=== PATIENT | female | born 1980 | race Native Hawaiian/Other Pacific Islander ===

== ENCOUNTER 2017-01-09 12:34 | Emergency (ER) | payer OTHER ==
[~2017-01-09] VITALS: Ht 170.2 cm; Wt 158.8 kg
[2017-01-09 13:05] VITALS: BP 151/86; TEMP 98.1
[2017-01-09] MEDS ORDERED: LEVO0.0529 PO (13:07)
[2017-01-09] MEDS ORDERED: TOPAMAX50 MG OR (13:08)
[2017-01-09] MEDS ORDERED: METFTAB PO (13:08)
[2017-01-09] MEDS ORDERED: RANITIDINE 150150 MG PO (13:08)
[2017-01-09] MEDS ORDERED: CETIRIZINE10 MG PO (13:09)
[2017-01-09] MEDS ORDERED: ADDERALL15 MG PO (13:09)
[2017-01-09] MEDS ORDERED: VALTREX1 GM PO (13:10)
[2017-01-09] MEDS ORDERED: ASPIRIN CHLD81 MG OR (13:10)
[2017-01-26] MEDS ORDERED: TRAM50TA PO (23:02)
== END 2017-01-09 14:40 | disposition home or self-care (01) ==
LOC: ED 12:34
DX: M79.1 Myalgia (principal)
CPT/HCPCS: 99281

== ENCOUNTER 2019-06-30 08:06 | Outpatient (CLI) | payer OTHER ==
[~2019-06-30 08:06] MED LIST: ADDERALL15 MG PO; ASPIRIN CHLD81 MG OR; CETIRIZINE10 MG PO; LEVO0.0529 PO; METFTAB PO; RANITIDINE 150150 MG PO; TOPAMAX50 MG OR; TRAM50TA PO; VALTREX1 GM PO
[2019-06-30 08:29] LABS: PLATELET COUNT 340 K/uL (152-353)
[2019-06-30 08:34] LABS: POTASSIUM 3.9 mmol/L (3.6-5.2); SODIUM 139 mmol/L (136-145)
== END 2019-06-30 23:59 ==
LOC: LABW 08:06
PROVIDERS: Nurse Practitioner Family
DX: R53.83 Other fatigue (principal); R60.0 Localized edema; E55.9 Vitamin D deficiency, unspecified; E78.2 Mixed hyperlipidemia
CPT/HCPCS: 36415; 80053; 80061; 82306; 82550; 82607; 83880; 84484; 85027

== ENCOUNTER 2020-04-11 09:31 | Outpatient (CLI) | payer BC | END 2020-04-11 19:52 | disposition home or self-care (01) | LOC: RAD 09:31 | DX: R05 Cough (principal) ==

== ENCOUNTER 2020-11-30 15:44 | Outpatient (CLI) | payer BC | END 2020-11-30 23:58 | disposition home or self-care (01) | LOC: RAD 15:44 | PROVIDERS: ATTEND Nurse Practitioner Family | DX: R05 Cough (principal) ==

== ENCOUNTER 2021-03-23 15:23 | Observation (INO) | payer BC ==
[~2021-03-23] VITALS: Ht 170.2 cm; Wt 199.7 kg
--- NOTE | 2021-03-23 15:38 | NUR ---
PATIENT ARRIVED TO THE FLOOR VIA WHEELCHAIR FROM ER.
[2021-03-23 16:12] LABS: PLATELET COUNT 333 K/uL (152-353)
[2021-03-23 16:26] VITALS: BP 118/74; TEMP 97.9; Ht 170.2 cm; Wt 199.7 kg
--- NOTE | 2021-03-23 16:30 | NUR ---
22G PERIPHERAL IV INITIATED TO LEFT AC. PATIENT TOLERATED WELL.
[2021-03-23 16:31] LABS: PARTIAL THROMBOPLASTIN TIME 25.7 SECONDS (24.5-33.6)
[2021-03-23 16:41] LABS: POTASSIUM 3.6 mmol/L (3.6-5.2); SODIUM 140 mmol/L (136-145)
[2021-03-23] MEDS ORDERED: FURO20TA67 PO (17:19)
[2021-03-23] MEDS ORDERED: PEPCID40 MG PO (17:19)
[2021-03-23] MEDS ORDERED: KRILL OIL1000 MG PO (17:20)
[2021-03-23] MEDS ORDERED: MULTIVITAMI1 PO (17:21)
[2021-03-23 19:50] VITALS: BP 111/59; TEMP 97.9
--- NOTE | 2021-03-23 20:09 | NUR ---
AT PT'S BEDSIDE AT THIS TIME. PT WAS RESTING WITH SIDE RAILS UP TIMES TWO WITH BED IN LOWEST POSITION. NAD NOTED. PT STATES "I FEEL MUCH BETTER".
[2021-03-23 23:55] VITALS: BP 108/54; TEMP 97.4
[2021-03-24 04:00] VITALS: BP 133/69; TEMP 98.3
[2021-03-24 08:00] VITALS: BP 124/60; TEMP 97.8
[2021-03-24 12:00] VITALS: BP 118/68; TEMP 98.3
--- NOTE | 2021-03-24 14:10 | NUR ---
DR. WALLACE HERE TO SEE PATIENT. NEW ORDERS RECEIVED TO REMOVE NITROPASTE, ADMINISTER TYLENOL 650MG PO FOR HEADACHE IF NEEDED, STOP ESTRACE, D/C HOME AND FOLLOW UP WITH PHYSICIAN ON SUNDAY, MARCH 28, 2021, NOTED AND CARRIED OUT.
--- NOTE | 2021-03-24 16:00 | NUR ---
REVIEWED DISCHARGE INSTRUCTIONS WITH PATIENT, PT V/O UNDERSTANDING. IV D/C'D WITH TIP IN TACT. PATIENT DENIES ANY PAIN, NEEDS OR C/O AT THIS TIME. PATIENT D/C'D AND TAKEN TO POV VIA WHEELCHAIR WITH SONS AT SIDE. NAD NOTED WITH PATIENT AT THIS TIME. REMINDED PATIENT OF FOLLOW UP APPT WITH DR. WALLACE ON MARCH 28 @ 11:30 AND ENSURED PATIENT HAD PRESCRIPTION FOR FIORECET. PATIENT TRANSFERRED TO POV WITHOUT DIFFICULTY.
== END 2021-03-24 16:00 | disposition home or self-care (01) ==
LOC: MED/SURG 15:23
PROVIDERS: ADMIT Family Medicine; ATTEND Family Medicine
DX: R07.89 Other chest pain (principal); J30.9 Allergic rhinitis, unspecified; E66.01 Morbid (severe) obesity due to excess calories
CPT/HCPCS: 36415; 80053; 82550; 84443; 84484; 85027; 85610; 85730; 87635; 93005; 96365; 96367; 96372; 99220; G0378; G0379; J1650; J2550; U0003

== ENCOUNTER 2021-03-28 15:17 | Outpatient (CLI) | payer BC ==
[~2021-03-28 15:17] MED LIST changes: +FURO20TA67 PO; +KRILL OIL1000 MG PO; +MULTIVITAMI1 PO; +PEPCID40 MG PO
== END 2021-03-28 19:29 | disposition home or self-care (01) ==
LOC: RAD 15:17
PROVIDERS: ATTEND Nurse Practitioner Family
DX: M54.5 Low back pain (principal); M79.602 Pain in left arm; M54.6 Pain in thoracic spine

== ENCOUNTER 2021-05-08 14:00 | Outpatient (CLI) | payer BC | END 2021-05-08 23:59 | disposition home or self-care (01) | LOC: RESP 14:00 | PROVIDERS: ATTEND Nurse Practitioner Family | DX: Z87.898 Personal history of other specified conditions (principal) ==

== ENCOUNTER 2021-06-12 11:14 | Outpatient (CLI) | payer BC, OTHER | END 2021-06-12 22:41 | disposition home or self-care (01) | LOC: RAD 11:14 | PROVIDERS: ATTEND Family Medicine | DX: U07.1 COVID-19 (principal) ==

== ENCOUNTER 2021-06-13 10:21 | Inpatient (IN) | payer OTHER, BC ==
[~2021-06-13] VITALS: Ht 167.6 cm; Wt 191.6 kg
[2021-06-13 17:33] LABS: PLATELET COUNT 266 K/uL (152-353)
[2021-06-13 17:55] LABS: POTASSIUM 2.9 mmol/L (3.6-5.2)
[2021-06-13 19:55] VITALS: BP 129/67; TEMP 100.4; Ht 167.6 cm; Wt 191.6 kg
[2021-06-13 20:00] VITALS: TEMP 101.5
--- NOTE | 2021-06-13 20:17 | NUR ---
PT HAS 22 GA LAC X2 ATTEMPTS. PT ALERT AND AWAKE. PT HAVING DIFFICULTY BREATHING WHEN WALKING AND PLACED ON O2 HIGH FLOW PER RESPIRATORY. NS IVF INFUSING AT 125ML/HR. IV ANTIBIOTICS ADMINISTERED ORDERED. ALL ADMISSION ORDERS COMPLETED. CRITICAL ON WBC=29.3,NOTIFIED AT 1735, DR WALLACE NOTIFIED AT 1750.
--- NOTE | 2021-06-13 21:45 | NUR ---
PT. HAD A TEMP OF 101.5. GAVE TYLENOL 500 MG. DECREASED TEMP TO 98.9
--- NOTE | 2021-06-13 23:00 | NUR ---
CALLED DR. WALLACE- FOR ANXIOUS BEHAVIOR EXHIBITED BY PT. PT STATES "DO NOT LET ME ". RECIEVED ORDERS FOR ATIVAN 1 MG ONE TIME DOSE AND PT. ALSO EXPERIENCING A NON-PRODUCTIVE COUGH. RECEIVED ORDERS FOR TUSSIONEX 5 ML PRN Q12H AND TESSALON PERLES 200MG TID PRN. NOTED AND CARRIED OUT.
[2021-06-14] VITALS (14 sets, daily range): BP systolic 105–152; BP diastolic 57–89; TEMP 98.1–99.4
--- NOTE | 2021-06-14 05:57 | NUR ---
PT. CURRENTLY SATTING 91% ON HIGH FLOW OXYGEN DEVICE AT 50L @ 45%. PT. RESTING WELL WITH SIDE RAILS UP TIMES TWO WITH BED IN LOWEST POSITION WITH CALL LIGHT WITHIN REACH. NO S/S OF ACUTE DISTRESS NOTED AT THIS TIME.
[2021-06-14 07:51] LABS: PLATELET COUNT 247 K/uL (152-353)
[2021-06-14 08:00] LABS: POTASSIUM 3.1 mmol/L (3.6-5.2)
--- NOTE | 2021-06-14 10:10 | NUR ---
PT TRANSFERRED DINTO ICU VIA BED WITH HIGHFLOW, PT LABORED, ALERT AND ORIENTED AT THIS TIME, ABLE TO MOVE W/O ASSIST TO ICU BED.
--- NOTE | 2021-06-14 10:15 | NUR ---
DR WALLACE AT BS.
--- NOTE | 2021-06-14 10:30 | NUR ---
NON-REBREATHER APPLIED OVER HIGHFLOW
--- NOTE | 2021-06-14 10:39 | NUR ---
PT MOVED TO ICU TO BE BETTER MONITORED, SHE IS ON HFNC AT 100% AT 50 LITERS. WITH A NRB OVER THAT. HEARTRATE 86, SPO2 IS 99%. PT IS STILL LABORED BREATHING.
--- NOTE | 2021-06-14 11:52 | NUR ---
ASSITED PT UP TO BSC TO VOID, URINE SATURATED CLOTHES REMOVED, PT CLEANED. AND ASSISTED BACK TO BED. RESP INCREASED WHILE OOB, SATS 83%.
--- NOTE | 2021-06-14 11:54 | NUR ---
SATS 93%
--- NOTE | 2021-06-14 12:30 | NUR ---
ATTEMPTED TO FIND SECND IV SITE W/O SUCCESS.
--- NOTE | 2021-06-14 13:15 | NUR ---
KEITH STONE RN ATTEMPTING IV
--- NOTE | 2021-06-14 13:28 | NUR ---
DR WALLACE GIVEN UPDATE, [facility] RECIEVED.
--- NOTE | 2021-06-14 14:47 | NUR ---
pt sitting up in bed, instructing pt to take deep brreaths andd cough.
--- NOTE | 2021-06-14 14:57 | NUR ---
500mm IS, LOOSE COUGH AAT TIMES
--- NOTE | 2021-06-14 15:08 | NUR ---
PT TEXTING AT THIS TIME. PT HAS BEEN INSTRRUCCTED SEVEAL TO TAKE DEEP BREATHS AND COUGH.
--- NOTE | 2021-06-14 15:10 | NUR ---
DR WALLACE AT BS
--- NOTE | 2021-06-14 16:32 | NUR ---
TRANSFERRED TO [facility] FOR XRAY
--- NOTE | 2021-06-14 16:38 | NUR ---
RETURN FROM RAD
--- NOTE | 2021-06-14 17:05 | NUR ---
PT INTUBATED PER NANCY CARL CRNA, DR WALLACE, RESP, OR STAFF AT BEDSIDE. INTUBATED WITH BROCHOSCOPE.
--- NOTE | 2021-06-14 17:16 | NUR ---
1 AMP ATROPINE GIVEN FOR DECREASED HEARTRATE OF 58.
--- NOTE | 2021-06-14 17:50 | NUR ---
PT INCONT OF STOOL AND URINE
--- NOTE | 2021-06-14 18:00 | NUR ---
TOF 4/, 20MM. APPLIED AT TEMPORAL
--- NOTE | 2021-06-14 18:00 | NUR ---
ART LINE PLACED PER R.T.
--- NOTE | 2021-06-14 18:05 | NUR ---
CHEST XRAY DONE CHECKING FOR PLACEMNET FOR TUBE PLACEMENT.
--- NOTE | 2021-06-14 18:30 | NUR ---
16 FR KIRKPATRICK INSERTED RNARE PER ELIZABETH ROBERSON RN
--- NOTE | 2021-06-14 18:57 | NUR ---
PT INTUBATED BY NANCY CARL CRNA AT 1705. PT PLACED ON VENTILATOR AT 1730. SETTINGS 500VT, 100% FIO2, RR30 ,PEEP 15, PS 10.. SETTINGS DR. WALLACE. PT ALSO SIMV. ARTLINE PLACED AND ABG DRAWN. RESULTS GIVEN TO DR. WALLACE. WANTS TO DECREASE RATE TO 27. WILL CONTINUE TO MONITOR ,PT SEEMS TO BE RESTING AT THIS TIME.
--- NOTE | 2021-06-14 20:00 | NUR ---
16FR HOLGUIN CATH INSERTED, RETURN OF RAHUL COLORED URINE.
--- NOTE | 2021-06-14 22:11 | NUR ---
X RAY RO DO CHEST X RAY TO VERIFY NG TUBE PLACEMENT
--- NOTE | 2021-06-14 23:45 | NUR ---
LATE ENTRY. 1900: ART LINE ZEROED, ASSESMENT COMPLETE, ALL IV SITES ARE CLEAN DRY AND INTACT 1999: PATIENT VITALS ARE STABLE, PATIENT HAS BEEN TURNED AND REPOSITIONED. 2100: RESPIRTORY AT BEDSIDE GIVING A BREATHING TREATMENT. IV ANTIBIOTIC STARTED. 0: RULE OF 4 PROTOCOL INITIATED. PATIENT HAS 4/4 POSITIVE TWITCHES. PATIENT IS IN NO APPARENT DISTRESS. 2300: MD INFORMED OF ET TUBE PLACEMENT. NO ORDERES GIVEN ON THE PLACEMENT. MD ALSO INFORMED ON PATIENTS BP TRENDS AND THAT THE VERSAD WAS TITRATED TO 7.5. MD ORDERED PROCAL TO BE STARTED. NO OTHER ORDERS GIVEN AT THIS TIME. 0000: PATIENTS VITALS ARE STABLE, PATIENT IN NO APPARENT DISTRESS
[2021-06-15] VITALS (49 sets, daily range): BP systolic 116–153; BP diastolic 50–97; TEMP 60–99.3
--- NOTE | 2021-06-15 00:18 | NUR ---
PATIENT NOTED WITH CLEAR SECRETIONS AROUND ET TUBE. MOUTH SUCTIONED AT THIS TIME. ORAL CARE PROVIDED.
--- NOTE | 2021-06-15 02:19 | NUR ---
0100: PATIENT REPOSITIONED AND LIMBS ELAVATED. PATIENT BEGAN SWEATING AND HER BLOOD PRESSURE WAS INCREESING. WE TITRATED THE VERSAD BACK UP TO 10
[2021-06-15 03:44] LABS: PLATELET COUNT 238 K/uL (152-353)
--- NOTE | 2021-06-15 03:46 | NUR ---
0230: TRAIN OF FOUR CHECKS WERE PREFORMED. NO TWICH CONFIRMED BY TWO NURSES IN TWO DIFFERENT SITES. 0250: VITALS ARE STABLE. NOTIFIED. ORDERED LABS TO BE DRAWN NOW, EKG, AND CARDICS. TWITCH TESTS PREFORMED EVERY 15 MINUTES. AT 0315 NO TWITCH NOTED, AT 0330 NO TWITCH NOTED. VITALS ARE STABLE AND PATIENT IN NO APPARENT DISTRESS. 0345: ONE TWITCH NOTED AND CONFIRMED BY OTHER NURSE
[2021-06-15 04:16] LABS: POTASSIUM 3.4 mmol/L (3.6-5.2)
--- NOTE | 2021-06-15 05:41 | NUR ---
RT AT BEDSIDE, CPLLECTING BLOOD GAS FROM PATIENTS ARTERIAL LINE
--- NOTE | 2021-06-15 06:42 | NUR ---
PATIENTS RULE OF 4 PROTOCOL. PATIENT HAS 2/4 TWITCHES =. PATIENT VITALS ARE WNL AND PATIENT IN NO APPARENT DISTRESS
--- NOTE | 2021-06-15 07:28 | NUR ---
CALLED AND IT WAS REPORTED THAT THE PATIENT HAD NO MORE TWITCHES AT 0630. DR SAID TO "TITRATE AND RECALCULATE TO HER 'IDEAL BODY WEIGHT' OF 160 LBS . PUMP IS NOW GOING AT 34.6ML/HR. ORDERED RESPIRTORY TO BEGIN "WEANING" OFF SOME OF THE O2. SHE ALSO ASKED PHARMACY TO RECALCULATE HER LOVENOX.
--- NOTE | 2021-06-15 07:50 | NUR ---
PT POSITIONED TO R SIDE
--- NOTE | 2021-06-15 08:10 | NUR ---
ART LINE LEVELED AND ZEROED.
--- NOTE | 2021-06-15 08:38 | NUR ---
UPDATE GIVEN TO DR WALLACE, ORDERS REVIEVED.
--- NOTE | 2021-06-15 08:38 | NUR ---
CHEST XRAY DONE
--- NOTE | 2021-06-15 09:15 | NUR ---
SATS 91%-92%. ORAL CAVITIY SUCTIONED, PT SUCTIONED WITH INLINE SUCTION.
--- NOTE | 2021-06-15 10:20 | NUR ---
PT SUCTIONED, BAGGED DUE TO DECREASED SATS. RESP TH AT BS. WORKING WITH PT TO INCREASE SATS FOR AN HOUR. PHONED DR WALLACE TO UPDATE ON PTS STATUS. DR WALLACE STATES SHE IS ONSITE.
--- NOTE | 2021-06-15 10:30 | NUR ---
PT POSITIONED TO LEFT WITH THE HELP OF SEVERAL STAFF MEMBERS.
--- NOTE | 2021-06-15 10:30 | NUR ---
DR WALLACE AT BS.
--- NOTE | 2021-06-15 11:05 | NUR ---
DECREASED VEC GTT 0.6MCG/KG/MIN.
--- NOTE | 2021-06-15 11:30 | NUR ---
ATTEMPTED TO CALL PTS , MAILBOX IS FULL, UNABLE TO LEAVE MESSAGE. CALLED TO ORDER TO GAIN CONSENT FOR PICC LINE PLACEMENT. DR WALLACE AND DR EILZABETH AT BS, AGREE PICC LINE NEEDS TO BE PLACED.
--- NOTE | 2021-06-15 11:36 | NUR ---
DR WALLACE PRESENT
--- NOTE | 2021-06-15 12:00 | NUR ---
PICC LINE PLACEMENT.
--- NOTE | 2021-06-15 13:00 | NUR ---
TOF 2/4 AT 25MM, PT RESTING COMFORTABLY.
--- NOTE | 2021-06-15 13:00 | NUR ---
PT POSITIONED ONTO LEFT SIDE, PT IS CLEAN AND DRY AT THIS TIME. SATS 95%
--- NOTE | 2021-06-15 14:00 | NUR ---
RESTING ON BACK
--- NOTE | 2021-06-15 15:45 | NUR ---
EKG DONE PER RT.
--- NOTE | 2021-06-15 17:36 | NUR ---
ORAL SECRETIONS SUCTIONED, MOUTH CARE DONE.
--- NOTE | 2021-06-15 18:43 | NUR ---
ADJUSTMENTS MADE TO VENT, 02 DECREASED 95%. ATTEMPTS MADE TO DECREASE PEEP 10 AND RATE 23, PTS 02 SATS DECREASED 88%, ABDOMINAL BREATHING NOTED. PEEP INCREASED TO 15 AND RATE INCREASED TO 27, PTS SATS INCREASED TO 94-95%. RAMÍREZ FROM RT INFORMED DR WALLACE CHANGE MADE AND ATTEMPTED CHANGES. CPK 319 REPORTED.
--- NOTE | 2021-06-15 20:00 | NUR ---
VECURONIUM 0.6 MCG/KG/MIN. TRAIN OF FOUR; 4/4 TWICHES. VEC TITRATED TO 0.8 MCG/KG/MIN.
--- NOTE | 2021-06-15 20:28 | NUR ---
PT GAVE LILIBETH PASSWORD ON 06-14-21 STATED THAT SHE WANTED HER TO BE POINT OF CONTACT. LILIBETH ARRIVED TODAY TO [employer] PT BELONGINGS. 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 LILIBETH ACKNOWLEDGED RECIEPT OF THESE ITEMS BY SIGNATURE. SHE ALSO COUNTED THE MONEY, THE RINGS AND CELL PHONE WAS SHOWN TO HER PRIOR TO HER LEAVING.
--- NOTE | 2021-06-15 20:35 | NUR ---
HERE AT THE BEDSIDE. UPDATED ON RECENT ABG. NO NEW ORDERS GIVEN AT THIS TIME. PATIENT WAS REPOSITIONED ON TO HER LEFT SIDE X 5 PERSON MAX ASSIST. PATIENT TOLERATED POSITIONING WELL.
--- NOTE | 2021-06-15 22:04 | NUR ---
TRAIN OF FOUR: 4/4 TWITCHES. VECURONIUM INCREASED TO 0.9 MCG/KG/MIN. WILL CONTINUE TO MONITOR.
--- NOTE | 2021-06-15 23:06 | NUR ---
LATE ENTRY 06/15/21 1900: RECEIVED REPORT FROM LIBERTAD MANRIQUE RN. SHIFT ASSESSMENT COMPLETED. PATIENT IS SEDATED AND ON A MECHANICAL VENT. VENT SETTINGS ARE FOLLOWS: SIMV MODE, TV 500 ML, RATE 27, PEEP 15, FIO2 95%. ET TUBE 7; 22 AT THE LIP. NG TUBE TO THE RIGHT NARE CONNECTED TO LIWS WITH DARK GREEN DRAINAGE NOTED IN TUBING. ART LINE ZEROED AND IT IS PATENT AND INTACT TO THE RIGHT WRIST. VERSED DRIP 10 MG/HR, VECURONIUM 0.6 MCG/KG/MIN, NS AT 30 ML/HR, PROCALAMINE 70 ML/HR INFUSING TO A PICC IN THE LEFT UPPER ARM AND 20G TO THE LEFT ARM, BOTH LINE ARE PATENT AND INTACT. 20G TO THE LEFT HAND IS SALINE LOCKED. PATIENT NOTED WITH 16F.HOLGUIN CATHETER TO THE BEDSIDE DRAINING PEACH COLORED URINE WITH PINK SEDIMENT NOTED IN TUBING. BED IS LOCKED IN LOW POSITION, SIDE RAILS UP X2.
--- NOTE | 2021-06-15 23:56 | NUR ---
VECURONIUM AT 0.9 MCG/KG/MIN. TRAIN OF FOUR: 2/4 TWITCHES. NO ACUTE DISTRESS NOTED.
[2021-06-16] VITALS: TEMP 98.2
--- NOTE | 2021-06-16 00:02 | NUR ---
VECURONIUM 0.9 MCG/KG/MIN. TRAIN OF FOUR; 1/4 TWITCHES. VEC DECREASED TO 0.8 MCG/KG/MIN.
--- NOTE | 2021-06-16 00:37 | NUR ---
PATIENT NOTED WITH SECRETIONS COMING FROM THE MOUTH. MOUTH SUCTIONED AT THIS TIME. ORAL CARE PROVIDED.
--- NOTE | 2021-06-16 01:38 | NUR ---
PATIENT REPOSITIONED ON HER BACK AT THIS TIME.
--- NOTE | 2021-06-16 02:55 | NUR ---
PT RESTING WITH EYES CLOSED. TEMP RECHECKED 102.5.
--- NOTE | 2021-06-16 03:21 | NUR ---
TRAIN OF FOUR; 2/4 TWITCHES VECURONIEUM 0.8 MCG/KG/MIN.
--- NOTE | 2021-06-16 04:26 | NUR ---
PATIENTS MOUTH SUCTION WITH SMALL AMOUNT OF CLEAR SECRETIONS NOTED. ORAL CARE PROVIDED TO MOUTH AND MOISTURIZER APPLIED TO LIPS AT THIS TIME.
--- NOTE | 2021-06-16 05:09 | NUR ---
SPO2 94% FIO2 WAS INCREASED FROM 95% TO 100% PER ABG READINGS.
[2021-06-16 05:30] VITALS: TEMP 97.9
--- NOTE | 2021-06-16 06:21 | NUR ---
TRAIN OF FOUR: 4/4 TWITCHES. VECURONIUM 0.9 MCG/KG/MIN.
[2021-06-16 08:19] LABS: PLATELET COUNT 282 K/uL (152-353)
[2021-06-16 08:33] LABS: POTASSIUM 3.6 mmol/L (3.6-5.2)
--- NOTE | 2021-06-16 19:25 | NUR ---
SHIFT ASSESSMENT COMPLETED. PATIENT IS SEDATED ON THE VENT WITH THE FOLLOWING DRIPS VERSED 0.15 MG/KG AND PROPOFOL 10 MCH/KG/MIN, PROCAL 70 ML/HR AND 1/2 NS AT 30 ML/HR. VENT SETTINGS SIMV MODE 95%, TV 500 ML, RATE 27, PEEP 15 ,PRESSURE SUPPORT 10, FIO2 80%. PATIENT HAS PICC LINE PRESENT TO THE LEFT UPPER ARM THAT IS PATENT AND INTACT AND 2 PERIPHERAL 20G TO THE LEFT ARM THAT ARE SALIEN LOCKED. 16 F. HOLGUIN CATHETER IS PRESENT TO BEDSIDE DRAINAGE AND IS DRAINING APPROX. 300 ML OF PEACH URINE NOTED WITH SEDIMENT. ART LINE ZEROED AND IS INTACT AND PATENT WITH NO SIGNS OF INFILTRATION NOTED.
[2021-06-16 19:30] VITALS: TEMP 97.6
[2021-06-16 23:00] VITALS: TEMP 98.1
--- NOTE | 2021-06-16 23:06 | NUR ---
2215 Decreased FIO2 to 95% PT maintaining SATs and appears to be resting with no distress noted.
[2021-06-17 04:00] VITALS: TEMP 98.8
[2021-06-17 06:27] LABS: PLATELET COUNT 326 K/uL (152-353)
[2021-06-17 06:43] LABS: POTASSIUM 3.2 mmol/L (3.6-5.2)
--- NOTE | 2021-06-17 08:09 | NUR ---
RESP AT BS OBTAINING ABG AT THIS TIME.
--- NOTE | 2021-06-17 08:30 | NUR ---
XRAY AT BS FOR CHEST XRAY AT THIS TIME.
--- NOTE | 2021-06-17 08:30 | NUR ---
DR WALLACE CALLED AND LABS REPORTED. NEW ORDERS REC'D TO GIVE KDUR 40MEQ VIA NGT. ORDERS REC'D TO GIVE 1/2 CAN ENSURE PLUS AND 30 MINS PAST FEEDING IF TOLERATED TO GIVE KDUR AT THAT TIME. ALSO REC'D ORDERS TO DECREASE PEEP IF PT TOELATES. LEÓN IN RESP NOTIFIED.
--- NOTE | 2021-06-17 09:17 | NUR ---
0800 DECREASED FIO2 TO 70%. PT MARC WELL. SPO2 AT 94-95% 0921 DECREASED PEEP TO 12. PT MARC WELL. SPO2 AT 92-93%
--- NOTE | 2021-06-17 13:37 | NUR ---
0933-ATTEMPTED TO WEAN PEEP. PT WOULD NOT TOLERATE AT THIS TIME. WILL TRY AGAIN LATER. 1222- DECREASED PEEP TO 13. PT TOLERATING AT THIS TIME. SPO2 AT 94%
--- NOTE | 2021-06-17 15:49 | NUR ---
INCREASE PEEP TO 14 POST ABG.
--- NOTE | 2021-06-17 17:00 | NUR ---
DR WALLACE HERE AT BS AT THIS TIME TO MAKE ROUNDS.
--- NOTE | 2021-06-17 17:18 | NUR ---
1650-DECREASED PEEP TO [address] WALLACE AT BEDSIDE. PT SPO2 AT 94%
--- NOTE | 2021-06-17 19:40 | NUR ---
ORDERS GIVEN PER MD TO MONITOR TEMP AND KEEP PT COOL AND OBSERVE FOR SEIZURES AND TO KEEP VERSED AT HIGHER RATE UNTIL SATURDAY NIT. TEMP TO REMAIN 96-97 AX. NEW ORDERS REPORTED TO MORALES BETHEA RN
--- NOTE | 2021-06-17 20:16 | NUR ---
SHIFT ASSESSMENT COMPLETED. PATIENT IS ON THE VENT WITH THE FOLLOWING SETTINGS SIMV, RATE 27, PEEP 13, PRESSURE SUPPORT 10, FIO2 70%, TV 500 ML. IV'S 20G X2 VERSED 0.09 MG/KG/HR, 1/2 NS @30ML/HR, PROCAL @70 ML/HR, PROPOFOL 30 MCG/KG/HR INFUSING TO THE A LEFT UPPER ARM PICC LINE W/O DIFFICULTY. NG TUBE TO THE RIGHT NARE IS INTACT AND DRAINAGE DARK GREEN GASTRIC CONTENTS TO LIWS. ET TUBE SIZE 7 AND 23 AT THE LIP. ART LINE ZEROED AND IS PATENT AND INTACT TO THE RIGHT WRIST. 16 F.HOLGUIN BAG IS INTACT WELL. BED IS LOCKED IN LOW POSITION.
--- NOTE | 2021-06-17 21:38 | NUR ---
PATIENT NOTED WITH ORAL SECRETIONS BUBBLING OUT OF THE MOUTH AND RIGHT NARE. MOUTH SUCTIONED AND ORAL CARE PROVIDED. RIGHT NARE CLEANED WELL. MOSITURIZER APPLIED AT THIS TIME.
--- NOTE | 2021-06-17 23:24 | NUR ---
RESIDUAL CHECKED AND IT WAS GREATHER THEN 60 ML LIGHT BROWN GASTRIC CONTENTS. PATIENT WAS FED EARLIER TODAY ENSURE PLUS WHICH EXPLAINS COLOR.
[2021-06-18] VITALS (8 sets, daily range): TEMP 97.8–98.8
--- NOTE | 2021-06-18 01:25 | NUR ---
ORAL CARE DONE. LIPS LUBRICATED. PATIENT REPOSITIONED ON TO HER BACK.
--- NOTE | 2021-06-18 04:27 | NUR ---
RT AT THE BEDSIDE GIVING IN LINE BREATHING TREATMENT. PATIENT TOLERATING WELL WITH SPO2 95%.
[2021-06-18 06:33] LABS: PLATELET COUNT 341 K/uL (152-353)
[2021-06-18 06:51] LABS: POTASSIUM 4.9 mmol/L (3.6-5.2)
--- NOTE | 2021-06-18 08:44 | NUR ---
ALYSA MCDONOUGH RN AND MYSELF AT PT'S BEDSIDE. PT NOTED TO BE WAKING UP AND ATTEMPTING TO OPEN HER EYES. REASSURED PT SHE WAS OK AND THAT SHE IS STILL IN ICU AT THIS TIME. PT NOTED TO BE BREATHING OVER THE VENT SO ALYSA MCDONOUGH RN INCREASED PT'S DIPRIVAN TO 35 MCG/KG/MIN AT THIS TIME AT A RATE OF 39.9 ML/HR. WILL CON'T TO MONITOR PT. DR. WALLACE NOTIFIED.
--- NOTE | 2021-06-18 08:53 | NUR ---
0739- DECREASED PEEP TO 12. SPO2 AT 95%.
--- NOTE | 2021-06-18 11:08 | NUR ---
1000- DECREASAED PEEP TO 10. DECREASED RR TO 25. PT MARC WELL. SPO2 95%
--- NOTE | 2021-06-18 11:37 | NUR ---
DECREASED FIO2 TO 60%. WILL GET ABG IN 30MINS.
--- NOTE | 2021-06-18 12:17 | NUR ---
ABG RESULTS CALLED DTO [facility] NO NEW ORDERS AT THIS TIME
--- NOTE | 2021-06-18 12:25 | NUR ---
PT NG TUBE DISCONNECTED FROM SUCTION. PLACEMENT VERIFIED. FLUSHED NG TUBE WITH 30CC OF WATER, MEDS GIVEN WITH 30CC OF WATER, NG THEN FLUSHED AGAIN WITH ANOTHER 30 CC OF WATER. PT TOLERATED MEDS WELL AT THIS TIME.
--- NOTE | 2021-06-18 13:58 | NUR ---
DECREASED PEEP TO [address] WALLACE AT BEDSIDE.
--- NOTE | 2021-06-18 15:30 | NUR ---
PT'S RR NOTED TO BE INCREASED AT 42. RESPIRATORY CALLED TO BEDSIDE. PT NOTED TO BE NASAL FLARING, PIEDAD HAND BENDER DEEP SUCTIONED AT THIS TIME. SMALL AMOUNT OF THICK BLOOD TINGED MUCOUS NOTED WHEN SUCTIONED. HME CHANGED BY DARWIN HERBERT AT THIS TIME. PT'S DIPRIVAN INCREASED TO 40 MCG/KG/MIN.
--- NOTE | 2021-06-18 16:20 | NUR ---
INCREASED INCREASED 50MCG/KG/MIN
--- NOTE | 2021-06-18 17:00 | NUR ---
1 AMP BICARB GIVEN IVP PER MD ORDERS RATE ON VENT INCREASED TO [address] WALLACE. WILL REPEAT ABG IN 30
--- NOTE | 2021-06-18 17:35 | NUR ---
VERSED 0.1MG/KG/HR. DIPPRIVAN INCREAED TO 55MCKG/MIN
--- NOTE | 2021-06-18 17:50 | NUR ---
RESP AT BS TO OBTAIN ABG
--- NOTE | 2021-06-18 18:19 | NUR ---
DECREASED RR TO [address] WALLACE.
--- NOTE | 2021-06-18 18:20 | NUR ---
RR REAMINS LABORED AND INCRASED AT 30. SMALL AMT OF NASAL FLARING NOTED. DIPRIVAN INCARASED TO 70MCG.
--- NOTE | 2021-06-18 19:00 | NUR ---
ABG RESULTS CALLED TO DR WALLACE. PT RESTING WITH EEYS CLSOED. RR NOTED TO BE LESS LABERED AND NO NASAL FLARING NOTED AT THIS TIME DIPIRVAN RUNNING AT 70MCG VERSED INFUSING AT 0.1MG/KG/HR VIA PUMP. PROCAL AT 70ML/HR WITH NS AT 30ML/HR VIA PUMP. SATS 96% HR 74 129/84. REPORT GIVNE TO MORALES SUÁREZ RN
[2021-06-19] VITALS: TEMP 98.4
[2021-06-19 04:00] VITALS: TEMP 99.8
[2021-06-19 05:43] LABS: PLATELET COUNT 327 K/uL (152-353)
--- NOTE | 2021-06-19 08:25 | NUR ---
PATIENT ABDOMINAL BREATHING. DR. WALLACE AT BEDSIDE. VERSED BEGAN INFUSING AT 7ML/HR.
[2021-06-19 20:00] VITALS: TEMP 99.1
[2021-06-20] VITALS (21 sets, daily range): BP systolic 129–151; BP diastolic 42–74; TEMP 98.6–100.6
--- NOTE | 2021-06-20 | NUR ---
LATE ENTRY 06/19/21 AT 1900 PATIENT WAS ASSESED AND all THE LINES WERE CHECKED AND IN NORMAL LIMMITS. IV ANTIBIOTS GIVEN AT 1999. 2100 PATIENT WAS REPOSITIONED AND LIMBS ELIVATED. 2340 LOPS WERE LUBRACATED AND MOUTHCARE PREFORMED
--- NOTE | 2021-06-20 06:07 | NUR ---
UPDATED MD ON STAUS OF PATIENT
[2021-06-20 06:14] LABS: PLATELET COUNT 264 K/uL (152-353)
[2021-06-20 06:53] LABS: POTASSIUM 4.2 mmol/L (3.6-5.2)
--- NOTE | 2021-06-20 08:00 | NUR ---
ARTLINE TO R RADIAL, ARTLINE ZEROED.
--- NOTE | 2021-06-20 11:01 | NUR ---
SPOKE WITH DR WALLACE TO FARIBA STOKES
--- NOTE | 2021-06-20 11:04 | NUR ---
RT DECREASED PEEP 10
--- NOTE | 2021-06-20 20:11 | NUR ---
PATIENT MID[place]AM WAS TITRATED UP TO 15 DUE TO AGGITATION
[2021-06-21 00:01] VITALS: TEMP 99.9
[2021-06-21 01:24] LABS: POTASSIUM 4.3 mmol/L (3.6-5.2)
[2021-06-21 01:35] LABS: PLATELET COUNT 256 K/uL (152-353)
[2021-06-21 04:00] VITALS: TEMP 98.9
--- NOTE | 2021-06-21 06:19 | NUR ---
SUCTION AND LAVAGED PT WITH NO SECRECTIONS NOTED. SPO2 95%
--- NOTE | 2021-06-21 07:38 | NUR ---
ER CAME IN AND REASSES THE PATIENT AFTER THE EVENT. HE STATED HE IS, "UNDER SEDATED" AND WROTE A NOTE. THE PATIENT IS MAXED OUT ON FENTNYL AND VERSED. I ASKED THE MD IF WE COULD DO CAARDIACS AND HE AGREED.
--- NOTE | 2021-06-21 10:35 | NUR ---
INCREASED FIO2 FROM 60% TO 70%. SPO2 NOW AT 91%
--- NOTE | 2021-06-21 15:00 | NUR ---
PT NG TUBE DISCONNECTED FROM SUCTION. PLACEMENT VERIFIED. FLUSHED NG TUBE WITH 50CC WATER. PROTEINEX AND HALF A CAN OF VANILLA ESURE GIVEN. FLUSHED WITH 50CC OF WATER. PT TOLERATED WELL.
[2021-06-21 19:00] VITALS: TEMP 100.5
--- NOTE | 2021-06-21 21:00 | NUR ---
RESTING IN BED WITH EYES CLOSED, NO S/S OF PAIN OR DISTRESS NOTED, REMAINS ON VENT FIO2 70% WITH O2 SAT OF 94%, 16F HOLGUIN PATENT DRAINING TO BEDSIDE, RESP RATE 27 NONLABORED, NG TUBE INTACT TO R NARE TO LIS WITH LEVI COLORED DRAINAGE NOTED IN TUBE, DEPENDANT EDEMA NOTED TO BOTH HANDS/ARMS FEET ALSO ELEVATED ON PILLOWS, SKIN WARM AND DRY, RADIAL PULSES INTACT, BS HYPOACTIVE, LUNGS DIMINISHED. WILL MONITOR CLOSELY, RAILS UP, BED IN LOW POSITION, HOB ELEVATED. ART LINE INTACT TO R RADIAL, PICC INTACT TO L UPPER ARM, 20G IV LOCK INTACT TO L UPPER ARM/SHOULDER AREA.
--- NOTE | 2021-06-21 21:30 | NUR ---
FSBS 157.
--- NOTE | 2021-06-21 22:10 | NUR ---
MOUTH CARE PROVIDED AT THIS TIME. PT REPOSITIONED. HANDS AND FEET ELEVATED. NAD NOTED.
[2021-06-22] VITALS: TEMP 99.7
--- NOTE | 2021-06-22 00:40 | NUR ---
RESTING WITH EYES CLOSED, NO S/S OF PAIN OR DISTRESS NOTED, RESP RATE NONLABORED, REMAINS ON VENT FIO2 70% SIMV TIDAL VOLUME 500 RATE 27 PEEP 10 PRESSURE SUPPORT 12 SIZE 7 ET TUBE 22 AT LIP, 16F HOLGUIN PATENT DRAINING TO BEDSIDE, PICC INTACT TO L UPPER ARM WITH PROPOFOL DRIP AT 43.86MCG/KG/MIN VERSED DRIP AT 15ML/HR, VITALS BEING MONITORED AND STABLE, ART LINE INTACT TO R RADIAL. FEET AND HANDS ELEVATED ON PILLOWS, NG TUBE TO R NARE HOOKED TO LIS WITH LEVI COLORED DRAINAGE NOTED IN TUBE. WILL MONITOR CLOSELY, RAILS UP, BED IN LOW POSITION.
--- NOTE | 2021-06-22 02:03 | NUR ---
spoke with luisa with pharmD. Made her aware that vancomycin peak was never drawn and tested from 06/21/21. luisa stated not to draw missed peak and changed vanc dose. order was put in for a peak and trough to be drawn before 4th dose of new vanc dose.
--- NOTE | 2021-06-22 03:00 | NUR ---
PT RESTING WITH HER EYES CLOSED IN LOW FOWLERS. NO ACUTE DISTRESS NOTED AT THIS TIME. VITALS ARE BEING MONITORING CONTINUOUSLY. WILL CONTINUE TO MONITOR.
[2021-06-22 04:00] VITALS: TEMP 99.6
--- NOTE | 2021-06-22 04:00 | NUR ---
NO RESIDUAL NOTED VIA NG TUBE, GAVE 1/2 CAN ENSURE PLUS FLUSHED BEFORE AND AFTER WITH 30ML WATER.
[2021-06-22 05:12] LABS: PLATELET COUNT 251 K/uL (152-353)
[2021-06-22 05:38] LABS: POTASSIUM 4.2 mmol/L (3.6-5.2)
--- NOTE | 2021-06-22 06:02 | NUR ---
RESTING WITH EYES CLOSED, NO S/S OF PAIN OR DISTRESS NOTED, NO CHANGE IN PT STATUS, FEET AND HANDS ELEVATED ON PILLOWS, HOB ELEVATED, VITALS BEING MONITORED, WILL MONITOR CLOSELY, RAILS UP, BED IN LOW POSITION.
--- NOTE | 2021-06-22 09:00 | NUR ---
SPOKE WITH DR WALLACE ON PHONE AND UPDATE ALONG WITH ALL LABS AND ABG REPORTED AT THIS TIME. NEW ORDERS REC'D TO GIVE LASIX 20MG IVP X ONCE . CON['T TO MONITOR.
--- NOTE | 2021-06-22 10:00 | NUR ---
PT TURNED TO RIGHT SIDE PER MD ORDERS. PT TOLERATED WELL.
--- NOTE | 2021-06-22 10:15 | NUR ---
WHIT CALLED FROM PHARM AND STATED TO GIVE VANC 1250MG AT 1100 AND WILL LET US KNOW WHEN SHE WANTS TO OBTAIN VAN PEAK AND TROUGH
--- NOTE | 2021-06-22 11:15 | NUR ---
PT NG DISCONNECTED FROM SUCTION. PLACEMENT VERIFIED. FLUSHED WITH 50CC WATER. MEDS AND ONE CAN OF ENSURE GIVEN. FLUSHED NG WITH 50CC WATER. PT TOLERATED WELL.
--- NOTE | 2021-06-22 11:16 | NUR ---
1000- DECREASED FIO2 TO 60%. PT TOLERATING WELL. SPO2 AT 94-95%
--- NOTE | 2021-06-22 11:32 | NUR ---
DR OGLESBY HERE AT THIS TIME. ORDERS REC'D TO DECREASE PRESSURE SUPPORT BY 2 AND THEN DECREASE PEEP BY 2. WILL INFORM RESP
--- NOTE | 2021-06-22 11:50 | NUR ---
REDUCED PS TO 10 AND PEEP TO 8 PER ORDERS SPO2 96% HR 63 TOLERATED WELL
--- NOTE | 2021-06-22 11:58 | NUR ---
LASIX 20MG IV GIVEN AT THIS TIME PER MD ORDERS.
--- NOTE | 2021-06-22 12:32 | NUR ---
VERSED DECREASED TO 12 AND DIPRIVAN DECREASED TO 40MCG PER MD ORDERS
--- NOTE | 2021-06-22 16:41 | NUR ---
1630 VERSED DECREASED TO 0.03MG/KG/HR AND PROPOFOL DECREASED TO 35MCG/KG/MIN R/T NO CHANGE IN PT ATTEMPTING TO BREATHE OVER VENT SETTINGS PER MD ORDERS.
--- NOTE | 2021-06-22 17:00 | NUR ---
PT NOTED TO HAVE TEMP OF 100.3AX DR WALLACE INFORMED AND NEW ORDERS REC'D TO DRAW BC X 2 IN TEMP GREATER THAN 101
--- NOTE | 2021-06-22 17:05 | NUR ---
DR WALLACE CALLED AND NEW ORDERS REC'D TO STOP ALL SEDATION AT THIS TIME. SO VERSED AND PROPOFOL STOPPED AT THIS TIME PER DR WALLACE . RESP INFOMRED AND AWARE WILL CONT TO MONITOR.
--- NOTE | 2021-06-22 18:00 | NUR ---
RECHECKED TEMP TEMP AX 99.8 8
[2021-06-22 20:00] VITALS: TEMP 99.8
--- NOTE | 2021-06-22 20:00 | NUR ---
RESTING WITH EYES CLOSED, NO S/S OF PAIN OR DISTRESS NOTED, ON VENT WITH FIO 2 OF 60%, VITAls being monitored, 16F HOLGUIN PATENT DRAINING TO BEDSIDE, 20G IV INTACT TO L HAND, PICC LINE INTACT TO L UPPER ARM, HEAD PACKAGER IN USE WITH RATE IN 70s, NG TUBE TO R NARE TO LIS, WILL MONITOR CLOSELY, RAILS UP, BED IN LOW POSITON, ART LINE INTACT TO R RADIAL. FEET AND HANDS ELEVATED ON PILLOWS.
--- NOTE | 2021-06-22 23:10 | NUR ---
VERSED DRIP RESTARTED AT THIS TIME PER ORDER PT HAVING NO S/S OF WAKING UP, EYES CLOSED, DOES NOT RESPOND TO VERBAL. VERSED STARTED AT 0.035MG/KG/HR. MOUTH CARE COMPLETED AND PT'S HEAD FEET AND ARMS REPOSITIONED, FEET AND HANDS ELEVATED ON PILLOWS, IV INTACT AND PICC INTACT, HOLGUIN PATENT, REMAINS ON VENT, ART LINE INTACT, VITALS BEING MONITORED, RAILS UP, BED IN LOW POSITION. HOB ELEVATED. NG TUBE INTACT TO R NARE TO LIS.
[2021-06-23] VITALS (12 sets, daily range): BP systolic 161–175; BP diastolic 75–82; TEMP 99.5–100
--- NOTE | 2021-06-23 02:45 | NUR ---
NO RESIDUAL NOTED VIA NG TUBE, GAVE FEEDING 1 CAN ENSURE FLUSHED BEFORE AND AFTER WITH 50ML WATER. SUCTION REMAINS OFF WILL HOOK BACK UP AFTER 1 TO 1.5 HOUR. HOB ELEVATED.
[2021-06-23 03:39] LABS: PLATELET COUNT 284 K/uL (152-353)
[2021-06-23 03:55] LABS: POTASSIUM 4.4 mmol/L (3.6-5.2)
--- NOTE | 2021-06-23 04:10 | NUR ---
PT WAKING UP OPENING EYES SLIGHTLY AND RESP RATE AND EFFORT HAVE INCREASED, RATE INCREASED TO 35-40. GAVE VERSED ONE TIME DOSE OF 5MG IVP(10 ORDERED WILL GIVE IF NEEDED IN A FEW MINUTES). HOB ELEVATED, WILL MONITOR.
--- NOTE | 2021-06-23 04:20 | NUR ---
STARTED PROPOFOL AT PREVIOUS RATE OF 43.86MCG/KG/MIN(50ML/HR) PT OPENING EYES [facility] AND COUGHING, RESP RATE ELEVATED. WILL MONITOR.
--- NOTE | 2021-06-23 04:45 | NUR ---
RESP RATE HAS NOW DECREASED TO 26 NONLABORED, PT RESTING WITH EYES CLOSED, WILL MONITOR CLOSELY.
--- NOTE | 2021-06-23 05:10 | NUR ---
VERSED DRIP AND PROPOFOL DRIP STOPPED AT THIS TIME PER ORDER OF DR. WALLACE.
--- NOTE | 2021-06-23 05:56 | NUR ---
RESTING WITH EYES CLOSED NO S/S OF DISTRESS NOTED, RESP RATE 27 NONLABORED, ON VENT WITH O2 SAT OF 95%, PULSE RATE 86, ART LINE INTACT TO R RADIAL, PICC INTACT TO L UPPER ARM, HOLGUIN PATENT, VITALS BEING MONITORED. WILL MONITOR, RAILS UP, BED IN LOW POSITION.
--- NOTE | 2021-06-23 06:54 | NUR ---
DR. WALLACE CALLED TO CHECK ON PT, ABG RESULTS AND VITALS GIVEN OVER THE PHONE. NEW TELEPHONE ORDER FOR RESPIRATORY TO DECREASE PEEP ON VENT AND MONITOR TO SEE HOW PT TOLERATED.
--- NOTE | 2021-06-23 09:05 | NUR ---
AM LAB AND CHEST XRAY RESULTS PROVIDED TO PHYSICIAN. NO NEW ORDERS RECEIVED AT THIS TIME.
--- NOTE | 2021-06-23 09:40 | NUR ---
AT BEDSIDE WITH PATIENT.
--- NOTE | 2021-06-23 09:55 | NUR ---
CONFIRMED PLACEMENT OF PATIENT'S NG TUBE, APPROXIMATELY 60ML OF FREE WATER INFUSED VIA NG TUBE, ENSURE X1 CAN GIVEN VIA NG TUBE AND FLUSHED WITH AN ADDITIONAL OF 60ML OF FREE WATER.
--- NOTE | 2021-06-23 12:05 | NUR ---
PATIENT IS EASILY AROUSED WITH EYES OPENING SPONTANEOUSLY, SEDATION MEDICATIONS RESTARTED INFUSING.
--- NOTE | 2021-06-23 14:05 | NUR ---
PER DR. WALLACE, VERSED D/C'D AT THIS TIME.
--- NOTE | 2021-06-23 15:05 | NUR ---
CONFIRMED PLACEMENT OF PATIENT'S NG TUBE, APPROX 60ML OF FREE WATER GIVEN, ENSURE X1 CAN GIVEN AND NG TUBE FLUSHED WITH FREE WATER 60ML GIVEN.
--- NOTE | 2021-06-23 16:00 | NUR ---
PATIENT GIVEN A BATH AND HAIR WASHED. PATIENT TOLERATED WELL. NO RESPIRATORY DISTRESS NOTED WITH PATIENT AT THIS TIME.
--- NOTE | 2021-06-23 22:00 | NUR ---
SHIFT ASSESSMENT COMPLETED. PATIENT IS OFF SEDATION. PATIENT IS RESTING QUIETLY WITH EYES CLOSED.
[2021-06-24] VITALS (18 sets, daily range): BP systolic 152–173; BP diastolic 70–85; TEMP 98.5–100.3
--- NOTE | 2021-06-24 03:37 | NUR ---
NOTIFIED ABOUT PATIENT TRYING TO WAKE UP AND DOES FOLLOW COMMANDS WHEN ASKING HER TO CLOSE HER HAND. STATED TO START HER BACK ON PROPOFOL. PATIENT STARTED AT 10 MCH/KG/HR.
--- NOTE | 2021-06-24 04:30 | NUR ---
HERE AT THE BEDSIDE. NO NEW ORDERS GIVEN AT THIS TIME.
[2021-06-24 04:40] LABS: PLATELET COUNT 206 K/uL (152-353)
[2021-06-24 05:13] LABS: POTASSIUM 3.9 mmol/L (3.6-5.2)
--- NOTE | 2021-06-24 11:41 | NUR ---
BLOOD OBTAINED FOR VAN TROUGH PER MD ORDERS
--- NOTE | 2021-06-24 14:15 | NUR ---
ART LINE RESTARTED PER EDMUNDO SALAS RESP THERAPIST. ART LINE PLACED INTO RT WRIST. NO PROBLEMS NOTED.
--- NOTE | 2021-06-24 19:47 | NUR ---
IS HERE AT THE BEDSIDE. ORDERS WERE GIVEN TO HAVE SEDATION TURNED BACK ON FOR TONIGHT SO PATIENT COULD REST AND THEN IN THE MORNING AT 6 TURN OFF SEDATION AND ALLOW HER TO WAKE UP. ORDER PLACED FOR ONE TIME ORDER OF PROPOFOL TO TITRATE PER PROTOCOL AND PATIENT NEEDS.
--- NOTE | 2021-06-24 20:00 | NUR ---
DR WALLACE AT BED SIDE. SHE SAID TO INCREASE PROPOFOL AT NIGHT AND WEANING IT DURING THE DAY THE DAY. PATIENT IS CURRENTLY ON 25MCG/KG/ MIN
--- NOTE | 2021-06-24 22:26 | NUR ---
PATIENT IS RESTING WELL. NO DISTRESS NOTED. PATIENTS BREATHING IS STEADY AND IN SYNC WITH THE MACHINE
--- NOTE | 2021-06-25 01:36 | NUR ---
PATIENT SUCTIONED. MODERATE AMOUNT OF LIGHT GREEN SECRETIONS NOTED. PATIENT TOLERATED WELL. ORAL CARE DONE. EYE CARE DONE.
--- NOTE | 2021-06-25 03:05 | NUR ---
PATIENT SUCTIONED AND AGAIN NOTED LARGE AMOUNTS OF SECRETIONS WITH YANKEUR IN THE BACK OF THE THROAT.
[2021-06-25 05:50] LABS: PLATELET COUNT 257 K/uL (152-353)
--- NOTE | 2021-06-25 06:18 | NUR ---
RT HERE AT THE BEDSIDE FOR CHEST X-RAY. PATIENT REPOSITIONED ON HER BACK.
--- NOTE | 2021-06-25 06:26 | NUR ---
SENT ABG RESULTS AND SHE STATED FOR RT TO CHANGE PATIENTS PEEP FROM 6 TO 5 AND PRESSURE SUPPORT FROM 10 TO 7, IF THE PATIENTS 02 SATS ARE GOOD RT CAN DECREASE HER FIO2 TO 50%.
--- NOTE | 2021-06-25 08:22 | NUR ---
LATE TEMPS 06/24- 1900: 98.9 0000: 99.4 0400: 98.6
--- NOTE | 2021-06-25 12:20 | NUR ---
DR. WALLACE AT BEDSIDE
--- NOTE | 2021-06-25 13:00 | NUR ---
DR WALLACE AT BS.
--- NOTE | 2021-06-25 15:45 | NUR ---
ATTEMPTED TO CALL PTS MOM WENT TO VOICEMAIL UNALBE TO LEANVE MESSAGE
--- NOTE | 2021-06-25 16:08 | NUR ---
PTS EYES OPEN AT THIS TIME. MOVING LEGS.
--- NOTE | 2021-06-25 16:29 | NUR ---
INCREASED PEEP BACK TO [address] WALLACE REQUEST. TOLERATED WELL AT THIS TIME
--- NOTE | 2021-06-25 17:00 | NUR ---
ORAL SECRETIONS SUCTIONED, LIP CARE DONE
--- NOTE | 2021-06-25 17:00 | NUR ---
PTS MOM WAS ABLE TO SPEAK TO PT.
--- NOTE | 2021-06-25 19:00 | NUR ---
LATE ENTRIES: [address] WALLACE WITH PATIENT'S AM LABS AND CHEST XRAY, RECEIVED NEW ORDERS FOR CHEST XRAY WITH PATIENT LAYING FLAT AND STRAIGHT AND ON INSPIRATION, DIFLUCAN 200MG IVPB TODAY AND DIFLUCAN 100MG BEGINNING TOMORROW, RESPIRATORY TO OBTAIN A SPUTUM CULTURE, AND MEROPENUM IVPB BEGINNING TODAY. EXTENSIVE ORAL CARE PERFORMED AND PATIENT SUCTIONED WITH COPIOUS AMOUNTS OF THICK SECRETIONS REMOVED. 09 RESPIRATORY AT BEDSIDE AND OBTAINED SPUTUM CULTURE VIA ET TUBE. 1405 RADIOLOGY AT BEDSIDE AND OBTAINED CHEST XRAY LATERAL AND PATIENT LAYING FLAT. PATIENT GIVEN AN EXTENSIVE BATH AND LINENS CHANGED.
--- NOTE | 2021-06-25 19:35 | NUR ---
DURING SHIFT CHANGE THIS NURSE AND LIBERTAD MANRIQUE RN ATTEMPTED TO ZERO OUT ART LINE AND BLOOD PRESSURE READING WAS NOT READING CORRECT WITH DAMPENED ARTERIAL WAVEFORM NOTED ON MONITOR. UPON REMOVING LLOYD AND ASSESSING ARTERIAL LINE IT WAS NOTED THE CATHATER TIP WAS HALF WAY OUT AND BENT. ATTEMPT WAS MADE TO INSERT BACK CATHETER AND FLUSH BUT UNSUCCESSFUL. LINE REMOVED WITH TIP INTACT AND SECURED WITH PRESSURE DRESSING. NOTIFIED RESPIRATORY FOR NEW INSERTION OF ART LINE.
--- NOTE | 2021-06-25 19:43 | NUR ---
NGT ASSESSED AND PLACEMENT CONFIRMED. X2 THIS SHIFT. PRIOR TO ENSURE 1 CAN BEING ADMINISTERED. NGT FLUSHED WITH 60 ML OF WATER BEFORE AND AFTER EACH FEEDING. CXR OBTAINED DURING THIS SHIFT. WITH MAX ASSIST X 6. BED BATH GIVEN STAGE 2 TO SACRUM. LARGE RED RAISED RED AREAS OBSERVED TO LT BUTTOCK AND RIGHT SIDE OF BACK IN CLUSTERS. SCATTERED RED RAISED AREAS OBSERVED TO RT SIDE OF BACK, RT BUTTOCK, AND BACK OF RT THIGH
--- NOTE | 2021-06-25 21:18 | NUR ---
RT AT THE BEDSIDE ATTEMPTING ARTLINE AND AFTER SEVERAL ATTEMPTS WERE UNSUCCESFUL. WILL NOTIFY DR. WALLACE.
--- NOTE | 2021-06-25 23:25 | NUR ---
NOTIFIED ABOUT ARTLINE. NO CALL BACK. WILL NOTIFY ON COMING SHIFT.
[2021-06-26] VITALS (8 sets, daily range): BP systolic 119–145; BP diastolic 51–78; TEMP 97.9–99.2
--- NOTE | 2021-06-26 05:05 | NUR ---
WHILE ROLLING THE PATIENT TO PROCUSS, A SKIN TEAR WAS NORICED ON THE RIGHT FLANK IN THE ABDOMINAL FOLD. IT WAS 2.5CM IN WIDTH AND 10 CM IN LENGTH. THE WIDTH IS .5 CM
--- NOTE | 2021-06-26 05:17 | NUR ---
LATE ENTRY 06/26/21 0415- PATIENT REPOSITIONED ON TO HER LEFT SIDE X5 PERSON MAX ASSIST. PATIENT TOLERATED WELL. HEAD AND ET TUBE SUPPORTED WHILE REPOSITIONING. PATIENT GIVEN CPT FOR 15 MINUTES ON THE RIGHT SIDE OF HER BACK. PATIENT TOLERATED ACTIVITY WELL WITH O2 SATS MAINTAINING AT 96%. PATIENT HAD LARGE AMOUNT OF THICK GREEN SECRETIONS NOTED AND WAS INLINE SUCTIONED AND IN ORAL CAVITY. PATIENT TOLERATED WELL.
[2021-06-26 05:38] LABS: PLATELET COUNT 230 K/uL (152-353)
[2021-06-26 05:58] LABS: POTASSIUM 3.8 mmol/L (3.6-5.2)
--- NOTE | 2021-06-26 06:50 | NUR ---
NOTIFIED IF SHE WANTED A PA AND LAT ON ICU 3 AND SHE STATED NO TO DO A SINGLE VIEW. SHE ALSO STATED TO DO AN ABG WHEN SHE IS AWAKE.
--- NOTE | 2021-06-26 07:25 | NUR ---
ABG TO BE DONE AFTER CHEST X-RAY AND BATHING AND REPOSITIONING DONE TODAY PER DR. WALLACE.
--- NOTE | 2021-06-26 09:00 | NUR ---
COMPLETE BEDBATH GIVEN TO PT AT THIS TIME BY STAFF. AFTER BATH PT REPOSITIONED AND THEN DIPRIVAN STOPPED PER MD ORDERS. 0930 PT AWAKE LYING IN BED. PT CALM AT THIS TIME. PT ABLE TO NOD HEAD IN RESPONSES TO QUESTIONS. MD AWARE. DR WALLACE STATED SHE WOULD BE HERE IN COUPLE OF HRS
--- NOTE | 2021-06-26 09:00 | NUR ---
AREAS BETWEEN SKIN FOLDS TO BACK OPEN. AREAS CLEANED WITH NS AND BARRIER CREAM APPLIED. PT ALSO HAS STAGE 2 TO SACRUM 1CMX0.5CM X 0.5CM DEPTH. AREA CLEANED AND LEFT OPEN TO AIR. WILL CONT TO MONITOR.
--- NOTE | 2021-06-26 13:43 | NUR ---
DECREASED PATIENT RATE FROM [address] WALLACE FOR WEANING AND ALSO TURNED PRESSURE SUPPORT FROM 7 T0 12 TO MAKE MORE COMFORTABLE BY OVERCOMNG THE HIGH RESISTANCE AND INCREASED WORK OF BREATHING.
--- NOTE | 2021-06-26 14:30 | NUR ---
DR WALLACE AT BS AT THIS TIME ALONG WITH NURSES AND DR WALLACE. PT EXTUBATED AT THIS TIME. PT TOLERATED WELL. PT PLACED ON COOL ARESOL MASK AFTER TUBE REMOVED PER .
--- NOTE | 2021-06-26 15:03 | NUR ---
DUONEB NOT GIVEN AT THIS TIME DUW TO PT RECIEVING ALBUTEOL/DEXAMETHASONE AND RAC EPI WITHIN THE LAST HOUR FOR EXTUBATION.
--- NOTE | 2021-06-26 16:59 | NUR ---
PT ASKING FOR ICE CHIPS AND ICE CHIPS PROVIDED AND PT TOLERATED WELL.
--- NOTE | 2021-06-26 20:40 | NUR ---
MOUTH CARE PROVIDED, PT AWAKE AND TALKS SOFTLY TO STAFF AT TIMES OR NODES HEAD YES OR NO, FACE WIPED CLEAN AND TAPE THAT SECURES NG TUBE CHANGED AT THIS TIME, NG TUBE REMAINS INTACT DOWN R NARE, PLACEMENT CONFIRMED BY AUSCULTATION, WILL MONITOR, PT TOLERATED WITH NO PROBLEMS.
--- NOTE | 2021-06-26 20:45 | NUR ---
PT REPOSITIONED IN BED. HANDS AND FEET ELEVATED ON PILLOWS, HOB ELEVATED.
[2021-06-27] VITALS (12 sets, daily range): BP systolic 96–132; BP diastolic 6–84; TEMP 97.7–98.6
--- NOTE | 2021-06-27 02:00 | NUR ---
PT FED A CARTON OF ENSURE. PT HAD 5 ML OF RESIDUAL PRIOR TO FEEDING. NG TUBE FLUSHED WITH 40 ML OF WATER BEFORE AND AFTER ADMINISTRATION OF FEEDING. PT RAISED TO HF FOR FEEDING. NAD NOTED. TOLERATED WELL.
--- NOTE | 2021-06-27 03:30 | NUR ---
PT AWAKE WITH NO ACUTE DISTRESS NOTED, TALKS SOFTLY TO STAFF AND WANTS SOME ICE CHIPS, TOLERATED ICE CHIPS PO WITH NO PROBLEMS NOTED AT THIS TIME, RESP RATE NONLABORED, REMAINS ON COOL AEROSOL MASK FIO2 60% O2 SATS IN 90s, PICC INTACT TO L UPPER ARM, VITALS BEING MONITORED, PT DENIES ANY OTHER NEEDS, REPOSITIONED SLIGHTLY IN BED, ARMS AND FEET ELEVATED ON PILLOWS, HOB ELEVATED, WILLMONITOR CLOSELY, RAILS UP, BED IN LOW POSITION.
--- NOTE | 2021-06-27 05:32 | NUR ---
RESTING WITH EYES CLOSED, NO S/S OF PAIN OR DISTRESS NOTED, RESP RATE NONLABORED 21 ON COOL AEROSOL MASK, PICC INTACT, NG TUBE INTACT TO R NARE HOOKED TO LIS, HOLGUIN PATENT, FEET AND HANDS ELEVATED ON PILLOWS, HOB ELEVATED, WILL MONITOR CLOSELY.
[2021-06-27 05:45] LABS: PLATELET COUNT 254 K/uL (152-353)
[2021-06-27 05:55] LABS: POTASSIUM 3.6 mmol/L (3.6-5.2)
--- NOTE | 2021-06-27 06:00 | NUR ---
PT AWAKE DENIES ANY PROBLEMS NO S/S OF DISTRESS NOTED. REPOSITIONED IN BED, FEET AND HANDS ELEVATED ON PILLOWS, HOB ELEVATED, PT CONTINUES TO TALK SOFTLY TO STAFF. FEET ALSO REPOSITIONED IN BED PER PT'S REQUEST. WILL MONITOR CLOSELY, RAILS UP, BED IN LOW POSITION.
--- NOTE | 2021-06-27 10:24 | NUR ---
[address] WALLACE ALONG WITH VS . ORDERS PLACED FOR PT AND OT EVAUL AND TREAT.
--- NOTE | 2021-06-27 12:30 | NUR ---
THERAPY AT AT THIS TIME. NAKUL FROM THERAPY WITH DOING ACTIVE AND PASSIVE RANGE OF MOTION AT THIS TIME.
--- NOTE | 2021-06-27 12:35 | NUR ---
PT'S HR NOTED TO INCREASE WHILE THERAPY PERFORMING ROM AT BS. HR INCRASEED TO 170 RYTHM NOTED TO CHANGE ON TEL AND NOTED TO BE AFIB PT THEN CONVERTED BACK TO SR WITH EPISODES OF SINUS ARRTHY. CHUCK DOWELL MD. EKG ORDERED AT THIS TIME. 1300 RESP AT BS PERFORMING EKG.
--- NOTE | 2021-06-27 12:45 | NUR ---
OMAYRA FROM [facility] HERE AT THIS TIME DOING SWALLOW EVAL. PER OMAYRA PT PASSED SWALLOW STUDY. NO PROBOLEMS AT THAT TIME. WILL INFORM ME 1300 DR WALLACE INFOMRED THAT PT PASSSEED SWALLOW STUDY PER ST. NEW ORDERS REC'D TO START REG DIET. IF PT TOELRATES DIET MAY REMOVE NGT.
--- NOTE | 2021-06-27 13:15 | NUR ---
DR WALLACE AT BS. PT CONTINUES TO HAVE PERIODS OF SINUS ARRTHY RATE CONTROLLED AND MD AWARE.
--- NOTE | 2021-06-27 13:30 | NUR ---
PT BEING ASSISTED PER PCT WITH LUNCH. PT TOELRATED WELL. SATS MAINTAINED 89-90% WHILE EATING.
--- NOTE | 2021-06-27 14:30 | NUR ---
PT CHANGED TO NC AT 3L PER DR WALLACE PTS SATS 93%
--- NOTE | 2021-06-27 14:30 | NUR ---
DR. WALLACE AT BEDSIDE. REC'D ORDERS TO DC NG TUBE AT THIS TIME. NG TUBE REMOVED. PT TOLERATED WELL. WILL CON'T TO MONITOR.
--- NOTE | 2021-06-27 19:14 | NUR ---
PT REPORTS NOT LIKING THE FOOD BROUGHT FROM THE [place] AND HAD HER FAMILY BRING HER SOME FOOD. PT NOTED TO EAT ABOUT 25%. ENCOURAGED PT TO EAT AND EDUCATED THAT SHE NEEDS TO EAT FOR THE NURTRITION AND TO BUILD STRENGTH. PT VERBALIZES UNDERSTANDING. NOTIFIED. NO NEW ORDERS REC'D AT THIS TIME.
--- NOTE | 2021-06-27 21:26 | NUR ---
GAVE ATIVAN 1MG SLOW IVP TO HELP WITH ANXIETY PT UNABLE TO SLEEP. PT REQUESTING STAFF OFTEN AND REPEATEDLY ASKING IF CALLED, SEEMS ANXIOUS, WILL MONITOR CLOSELY.
--- NOTE | 2021-06-27 22:30 | NUR ---
RESTING WITH EYES CLOSED,NO S/S OF PAIN OR DISTRESS NOTED, WILL MONITOR, FEET AND ARMS ELEVATED ON PILLOWS.
[2021-06-28] VITALS (12 sets, daily range): BP systolic 106–129; BP diastolic 50–71; TEMP 97.9–98.9
--- NOTE | 2021-06-28 02:00 | NUR ---
RESTING IN BED WITH EYES CLOSED, NO S/S OF PAIN OR DISTRESS NOTED, RESP RATE NONLABORED, ON 3LPM VIA NC, VITALS BEING MONITORED, RAILS UP, BED IN LOW POSITION, FEET AND ARMS ELEVATED ON PILLOWS.
[2021-06-28 06:37] LABS: PLATELET COUNT 168 K/uL (152-353)
[2021-06-28 06:43] LABS: POTASSIUM 3.7 mmol/L (3.6-5.2)
--- NOTE | 2021-06-28 06:50 | NUR ---
PT AWAKE SITTING UP IN BED TALKING ON PHONE TO FAMILY(OON SPEAKER PHONE) WITH NO ACUTE DISTRESS NOTED, RESP RATE NONLABORED, ON 3LPM NC, GAVE SOME SPRITE PER REQUEST TOLERATED WITH NO PROBLEMS, WILL MONITOR CLOSELLY RAILS UP, BED IN LOW POSITION. PICC INTACT TO L UPPER ARM.
--- NOTE | 2021-06-28 10:18 | NUR ---
MEDICATED WITH ATIVAN 1MG SIVP FOR ANXIETY.
--- NOTE | 2021-06-28 10:20 | NUR ---
DR WALLACE IN TO SEE PT. PT ON HER TELE PHONE ON [employer] PHONE TALKING LOUDLY TO SISTER. PT 'WANTING TO GET OUT OF BED.' DR WALLACE EXPLAINED TO PT WE WOULD TRY WHEN SHE WAS A LITTLE BETTER.
--- NOTE | 2021-06-28 16:00 | NUR ---
PT UP TO BS BARIATRIC GERICHAIR WITH EDU LIFT & ASSIST OF 6 PEOPLE. PT TOLERATED WELL.
--- NOTE | 2021-06-28 17:30 | NUR ---
CONTINUES TO SIT UP IN BS CHAIR WITH NO C/O.
--- NOTE | 2021-06-28 22:56 | NUR ---
LATE ENTRY. AT THE BEGINNING OF THE SHIFT THE PATIENT WAS PLACED IN THE LIFT AND MOVED FROM THE RECLINER TO THE BED. PATIENT WAS SLIGHTLY CONFUSED AND WAS ASKING WHERE HER NEW ROOM . PATIENT WAS REORIENT AND REPOSITIONED IN BED. PATIENT IS NOW RESTING QUIETLY. BEATHING IS REGULAR AND NON LABORED
[2021-06-29 00:01] VITALS: BP 117/62; TEMP 98.2
--- NOTE | 2021-06-29 00:59 | NUR ---
PATIENTIS RESTING QUIETLY. NO SOB NOTED AND NO PAIN REPORTED.
[2021-06-29 01:00] VITALS: BP 116/68
[2021-06-29 02:00] VITALS: BP 122/66
[2021-06-29 03:00] VITALS: BP 106/68
[2021-06-29 04:00] VITALS: BP 122/65; TEMP 98.3
[2021-06-29 05:00] VITALS: BP 121/66
[2021-06-29 08:56] LABS: POTASSIUM 4.1 mmol/L (3.6-5.2)
[2021-06-29 09:00] LABS: PLATELET COUNT 263 K/uL (152-353)
--- NOTE | 2021-06-29 11:00 | NUR ---
RECEIVED TO ROOM 1129 VIA WILL CHAIR. REPORT JORGE PAYNE RN. Pt. UNABLE TO LIFT ARMS AND LEG. REQUIRE TOTAL ASSIST. Pt. TALKING AND SMILING. PICC LINE INTACT L UPPER ARM. SKIN WARM AND DRY.
--- NOTE | 2021-06-29 11:04 | NUR ---
Spoke with Donna at [facility] in [facility] at [phone], and referral was faxed to [phone] Trev hammond. Jayme HULL spoke with patient and she is consenting to this transfer, patient on personal cell phone with family at that time and were notified.
--- NOTE | 2021-06-29 13:26 | NUR ---
Spoke with Donna at [facility]. She has just sent information over for review, and if not heard from her by 4 or 5pm today to contact her back at [phone].
--- NOTE | 2021-06-29 17:00 | NUR ---
Pt. RETURNED TO BED.
--- NOTE | 2021-06-30 01:28 | NUR ---
ROUNDS WERE MADE. PT WAS HUNGRY. ASSISTED WITH FEEDING PT POPTART. PT ALSO DRANK A SODE. BEDSIDE TABLE IN EASY REACH. PT UNABLE TO REACH CALL REICH. PT UNABLE TO REACH CALL LIGHT. I OPENED HER ENTRANCE DOOR APPROX 2 FEET. INSTRUCTED PT THAT STAFF WOULD BE CHECKING ON HER MORE FREQUENT. PT VOICED UNDERSTANDING.
--- NOTE | 2021-06-30 02:54 | NUR ---
ROUNDS MADE ON PATIENT. PT RESTING WITH EYES CLOSED.
--- NOTE | 2021-06-30 05:44 | NUR ---
PT RESTING QUIETLY. NAD.
[2021-06-30 08:00] VITALS: BP 116/67; TEMP 97.9
--- NOTE | 2021-06-30 08:38 | NUR ---
Spoke with Keara from [facility]. She says that patient has to be 20 days past start of symptoms and that 07/02/21 will be her 20 days. She also says that patient will have to be out of bed for a total of 2 hours per day and that it does not have to be done all at once just a total of 2 hours in a 24 hour period before she can praticipate in their program. She will need updated information on Saturday07/03/21. She will follow up with UR department Saturday after reviewing the new therapy information.
--- NOTE | 2021-06-30 11:41 | NUR ---
PT ALERT AND AWAKE. ASSISTED PT USING EDU LIFT TO TRANSFER PT FROM BED TO CHAIR. FED PT BREAKFAST, PT ONLY ATE 25% AND STATED "I'M FULL NOW." PT WILL BEGIN BLADDER TRAINING TODAY TO D/C CHELSIE AND ON STRICT I&Os PER PCP. PT MAY BE TRANSFERRED TO [facility] IN [facility]. ON SATURDAY PENDING PTS STATUS. PT DENIES ANY PAIN/DISCOMFORT AT PRESENT TIME. PT IN CHEERFUL MOOD. ASSISTED PT WITH CELL PHONE TO SPEAK WITH FAMILY. PTS UNCLE JENNIFER CALLED TO CHECK ON PTS STATUS AND SPOKE WITH PT ON HER CELL PHONE. ADMINISTERED AM MEDS ORDERED,PO AND PT TOLERATED WELL. SWALLOWING INTACT.PT ABLE TO MOVE RIGHT HAND AND LIMITED MOBILITY TO LEFT HAND. NO MOVEMENT TO UPPER AND LOWER EXTREMITIES.
[2021-06-30 11:53] LABS: PLATELET COUNT 211 K/uL (152-353)
[2021-06-30 15:50] LABS: POTASSIUM 4.1 mmol/L (3.6-5.2)
[2021-06-30 16:00] VITALS: BP 143/73; TEMP 97.3
--- NOTE | 2021-06-30 17:36 | NUR ---
PT WAS UP IN CHAIR FROM [phone] TODAY. C/O BURNING TO BUTTOCKS. PT EVALUATED BY PCP AND PT HAS SHINGLES TO LEFT SIDE OF BUTTOCKS, ZIVROMAX OINTMENT APPLIED ORDERED. HOLGUIN D/C'D AND PUREWICK AT BEDSIDE. PT VOIDED X1 AFTER HOLGUIN D/C'D, WET CHUCKS AND BED LINEN. BED LINEN CHANGED AND PT GIVEN A BED BATH.PT HAS STAGE 4 BED SORE IN INNER BUTTOCKS AND WAS ASSESSED BY PCP AND ORDER FOR DUODERM APPLIED AND INTACT, BED SORE ABOUT 2X2CM. PT STARTED ON VALTREX FOR SHINGLES AND MED ADMINISTERED ORDERED. PT ALERT AND ORIENTED X4. PTS CHILDREN AND FAMILY VISITED AT [place] TODAY. PT TALKS TO FAMILY ON CELL PHONE WITH ASSISTANCE FROM STAFF. PT FED BY [facility] STAFF THIS SHIFT, ATE NO MORE THAN 25% AT EACH MEAL. PT DENIES ANY PAIN AT PRESENT TIME. AM LABS ORDERED FOR 07/01/21. PT AND FAMILY HAVE CONCERNS ABOUT PT GOING TO [place] FOR REHAB DUE TO LONG DISTANCE FROM HOME AND PT NOT BEING ABLE TO SEE CHILDREN. PT AGREES AT THIS TIME TO GO TO FACILITY FOR REHAB. PT CONTINUES TO HAVE PICC LINE TO LEFT UPPER ARM AND FLUSES WITH NO DIFFICULTY.
--- NOTE | 2021-06-30 19:31 | NUR ---
PT HAD BM X1 AND WAS CLEANED AND CHANGED CHUCKS. PT DENIES ANY PAIN/DISCOMFORT. PT IN BED TALKING ON CELL PHONE TO FAMILY. NAD NOTED. O2@ 3LPM IN TACT VIA NC. PT A&O X4. PT REQUIRES EXTENSIVE ASSISTANCE FROM STAFF WITH TURNING AND CHANGING PT.
[2021-06-30 20:00] VITALS: BP 133/61; TEMP 98.2
[2021-07-01] VITALS: BP 128/62; TEMP 98.2
[2021-07-01 04:00] VITALS: BP 113/55; TEMP 99
--- NOTE | 2021-07-01 05:28 | NUR ---
Pt has rested at intervals through the night. Pt had incontinent episodes of B&B with pericare provided. PICC line flushed without difficulty to purple line. Pt required x4 staff members to turn and reposition and during incontinent care. No s/s of distress. Call light in easy reach.
[2021-07-01 06:20] LABS: PLATELET COUNT 177 K/uL (152-353)
[2021-07-01 07:12] LABS: POTASSIUM 3.9 mmol/L (3.6-5.2)
[2021-07-01 08:00] VITALS: BP 113/55; TEMP 97.5
--- NOTE | 2021-07-01 08:18 | NUR ---
PT A&O X4. PT HAD BM X1 WITH LOOSE STOOLS. PT CLEANED AND CHANGED, AND TURNED. MOUTH CARE, WASHED FACE AND EXTREMITIES, HAIR BRUSHED DONE ON PT THIS AM, AND LOTION TO BODY. PT CONTINUES TO HAVE SHINGLES NOTED TO LEFT SIDE OF BUTTOCKS,NO CHANGE IN STATUS FROM 06/30/21. DUODERM INTACT TO INSIDE OF SACRUM TO WOUND, WOUND IS STAGE 2,SKIN BROKEN AND WOUND RED. NAD NOTED. PT DENIES ANY PAIN OR DISCOMFORT.
--- NOTE | 2021-07-01 11:16 | NUR ---
PTS FAMILY CALLED AND REPORTED THAT PT WAS IN HER ROOM IN PAIN AND WET AND NEED TO BE CHANGED. WENT TO ASSESS PT AND PT WAS NOT WET, BED AND CHUCKS DRY AND PT DENIED ANY PAIN. PT UNABLE TO PUSH THE CALL BUTTON. A REICH WAS PLACED IN HER RIGHT HAND FOR PT TO USE WHEN SHE NEEDS NSG STAFF. PTS DOOR IS LEFT PARTIALLY OPEN FOR PT TO VERBALLY CALL STAFF WHEN NEEDED. PT ALERT AND AWAKE. PT TALKING ON CELL PHONE TO FAMILY USING SPEAKER PHONE.
[2021-07-01 12:00] VITALS: BP 129/60; TEMP 97.9
--- NOTE | 2021-07-01 15:10 | NUR ---
PT UP IN BED TALKING ON CELL PHONE TO FAMILY USING SPEAKER PHONE. PHYSICAL THERAPY ASSISTED PT AND ALLOWING HER TO USE THE CALL BUTTON BY USING HER THUMB ON HER RIGHT HAND. PT A&O X4. DENIES ANY PAIN/DISCOMFORT. PT REPOSITIONED IN BED. PT HAD BM X2 TODAY. NAD NOTED. PT FED BREAKFAST AND LUNCH AND ATE 25% OF MEAL WITH ABOUT 4 OZ OF TEA/DRINK.
[2021-07-01 16:00] VITALS: BP 122/66; TEMP 97.8
[2021-07-01 20:00] VITALS: BP 115/60; TEMP 98.2
[2021-07-02] VITALS (7 sets, daily range): BP systolic 113–143; BP diastolic 60–82; TEMP 97.7–99.4
--- NOTE | 2021-07-02 08:14 | NUR ---
PT IN BED IN SUPINE POSITION WITH EYES CLOSED. O2 VIA NC AT 3LPM INTACT. PT HAS LOW GRADE TEMP @99, WILL ADMINISTER ACETAMINOPHEN ORDERED. NO S/S OF DISTRESS NOTED OR PAIN/DISCOMFORT. PICC LINE TO LEFT UPPER ARM INTACT AND PURPLE LINE FLUSHES WITH EASE, RED LINE DIFFICULT TO FLUSH.
--- NOTE | 2021-07-02 11:47 | NUR ---
PT HAD VOIDED AND WAS CHANGED. BED BATH GIVEN, ACYCLOVIR OINTMENT APPLIED TO SHINGLES ON LEFT BUTTOCKS,SHINGLES HAVE CRUSTED AND PT C/O ITCHING TO SITE. NEW DUODERM APPLIED TO BEDSORE BETWEEN BUTTOCKS, STAGE 2, WOUND RED WITH NO ODOR AND MINIMUM DRAINAGE, WOUMD 2X2CM. ORAL HYGIENE COMPLETED. ENCOURAGED PT TO USE RIGHT HAND TO EAT TOAST FROM BREAKFAST THIS AM, PT WAS ABLE TO USE RIGHT HAND AND PUT IT TO HER MOUTH TO EAT. PT WILL ASSIST WITH TURNING OR MOVING IN BED BY USING HER LEGS. PT A&O X4. NAD NOTED.
--- NOTE | 2021-07-02 13:32 | NUR ---
FED PT LUNCH, PT ATE ONLY 25% OF MEAL AND DRINKS ONLY 3-4 SIPS OF TEA/WATER. PTS SISTER CALLED THAT PT TEXTED HER AND SAID SHE WAS IN PAIN. PT DOES NOT HAVE FULL ROM OF UPPER EXTREMITIES. PT DENIES ANY PAIN OR DISCOMFORT. WITH ASSISTANCE FROM PHYSICAL THERAPY AND STAFF, EDU LIFT USED TO TRANSFER PT FROM BED TO CHAIR AT 1300.
--- NOTE | 2021-07-02 15:14 | NUR ---
1510 DIGOXIN 0.5MG IVP GIVEN AT THIS TIME PER DR ELIZABETH . PT'S HR 152 AND IRREG AT THIS TIME. PT IS ON TEL AND WILL CONT TO SERAFIN. BP 116/76.
--- NOTE | 2021-07-02 15:18 | NUR ---
PT ON PHONE WITH FAMILY AFTER BREAKFAST. PT TRANSFERED FROM BED TO CHAIR AND STARTED EXPERIENCING TACHYCARDIA, JW=[id number]. PT C/O PAIN R/T SHINGLES, ADMINISTERED ATIVAN 1MG IV ORDERED FOR PAIN AT 1430. CONSULTED WITH HCP ON SITE AND OBTAINED AN ORDER FOR EKG. EKG RHYTHM SHOWED A-FIB. HCP PROVIDER ON SITE NOTIFIED PTS PCP TO CONSULT PTS STATUS. PT IN CHAIR CALM AND RESTING WITH EYES CLOSED. ORDER FOR DIGOXIN 0.5MG IV ORDERED X1 DOSE NOW, 0.25MG IV Q6H, AND THEN 0.25MG QH6. NOW DOSE ADMINISTERED AT 1510 BY NURSE CEASARRN. PTS FI=132/76,T=97.9, R=20. NO WHEEZING NOTED. PT RESTING QUIETLY IN CHAIR IN ROOM. PT STATED PAIN HAS DECREASED R.T SHINGLES.
--- NOTE | 2021-07-02 16:44 | NUR ---
PTS HR=90-101. PT CONTINUES TO BE SITTING UP IN CHAIR. PTS MOTHER CALLED AND WANTED TO BRING PTS CHILDREN TO SEE PT, EXPLAINED TO MOTHER PTS NEED TO REST AND MAY BRING CHILDREN LATER THIS EVENING. PTS TEMP=99.4, ADMINISTERED TYLENOL ORDERED PO DOSE. PT DENIES ANY PAIN/DISCOMFORT. PT HAD SHORTNESS OF BREATH, O2 INTACT AT 3LPM.
--- NOTE | 2021-07-02 19:03 | NUR ---
PT TRANSFERED FROM CHAIR TO BED USING EDU LIFT AFTER BEING UP IN CHAIR FOR 3HRS. PT CHANGED AND CLEANED. ACYCLOVIR OINTMENT APPLIED TO LEFT BUTTOCKS FOR SHINGLES. PTS TEMP=97.8 AFTER HAVING LOW GRADE TEMP OF 99 IN EVENING. TYLENOL PO ADMINISTERED. PT DENIES ANY PAIN OR DISCOMFORT. FED PT DINNER, ONLY ATE 25% WITH 3-4 SIPS OF JUICE. PTS CHILDREN VISITED HER AT ROOM WINDOW. PT HAS CELL PHONE AT BEDSIDE AND HAS TO HAVE ASSISTANCE TO ANSWER PHONE. NAD NOTED.
[2021-07-03] VITALS: BP 115/65; TEMP 98.6
[2021-07-03 04:00] VITALS: BP 123/64; TEMP 98.3
[2021-07-03 06:01] LABS: PLATELET COUNT 226 K/uL (152-353)
[2021-07-03 08:00] VITALS: BP 130/63; TEMP 98.1
[2021-07-03 12:00] VITALS: BP 138/72; TEMP 98.4
--- NOTE | 2021-07-03 12:50 | NUR ---
Keara with [facility] left message at 11:38am that she would review the new therapy notes that she had requested from the weekend. She said that she would review and let us know possibly in the morning. She also said that Saturday would be the earliest she could take patient if they decided that they could. She is checking on discharges and if they have a change they will notify UR department.
--- NOTE | 2021-07-03 15:53 | NUR ---
@ 1411 PT CRYING STATING SHE WAS HAVING SEVERE ABDOMINAL PAIN. PT STATES SHE FEELS LIKE SHE IS UNABLE TO URINATE OR DEFECATE. NOTIFIED DR WALLACE. @ 142 IN/OUT CATH DONE WITH 16 TURKISH HOLGUIN CATH. 300CC CLEAR YELLOW URINE RECEIVED IMMEDIATELY. PT STATED SHE HAD INSTANT ABDOMINAL PAIN RELIEF AND PT ALSO HAD A BM DURING THE PROCESS. @[address] WALLACE OF PATIENT'S IMPROVEMENTS AFTER CATH. ORDERS RECEIVED TO D/C CT ORDERS BUT STILL GIVE NEURONTIN. ORDERS RECEIVED AND CARRIED OUT.
[2021-07-03 16:00] VITALS: BP 156/70; TEMP 98.3
[2021-07-03 20:00] VITALS: BP 138/72; TEMP 98.7
[2021-07-04] VITALS: BP 132/66; TEMP 98.5
[2021-07-04 04:00] VITALS: BP 124/74; TEMP 98.3
[2021-07-04 06:00] LABS: POTASSIUM 3.9 mmol/L (3.6-5.2)
[2021-07-04 06:22] LABS: PLATELET COUNT 155 K/uL (152-353)
[2021-07-04 08:00] VITALS: BP 128/58; TEMP 98.5
--- NOTE | 2021-07-04 09:35 | NUR ---
i rec call from Glo at [facility] this morning [phone] stating that their medical office assistant instructor did not approve this transfer to their facility. She stated they felt that the pt would not be able to tolerate 3 hrs per day for 20 days of therapy and that they needed her to be able to walk 10 feet and to only be moderate assist before they could receive her there at their acute in rehab facility. Dr. Abernathy notified.
[2021-07-04 12:00] VITALS: BP 108/32; TEMP 97.8
[2021-07-04 16:00] VITALS: BP 136/66; TEMP 98.4
[2021-07-04 20:00] VITALS: BP 132/70; TEMP 98.9
--- NOTE | 2021-07-04 20:51 | NUR ---
SPOKE TO MARIE FROM [facility] IS TO SEND THE REFERRAL TO THE ACUTE REHAB SIDE OF THE HOSPITAL TO [facility]PAR[facility] STAGE 2 OBSERVED TO SACRUM 2.0 CMX 1.0CM X 0.2CM WITH RED WOUND BED CLEANED AND DUODERM APPLIED PER MD ORDERS UNSTAGEABLE OBSERVED TO FOLDS IN THE RIGHT SIDE OF THE BACK WITH WOUND BED COVERED IN SLOUGH. 7.0 CM X 1.7 CM X0.2CM. DAKINS WET TO DRY COMPLETED PER MD ORDERS.
[2021-07-05] VITALS: BP 125/69; TEMP 98.4
[2021-07-05 04:00] VITALS: BP 114/64; TEMP 98.3
[2021-07-05 08:00] VITALS: BP 138/69; TEMP 97.6
--- NOTE | 2021-07-05 09:00 | NUR ---
PT AWAKE AND ALERT. TALKING ON CELLPHONE. PT GIVEN BED BATH, BED LINEN CHANGED. ACYCLOVIR OINTMENT APPLIED TO SHINGLES ON BUTTOCKS. INCREASED HEALING NOTED TO SHINGLES TO LEFT SIDE OF BUTTOCKS. SKIN TEAR TO RIGHT SIDE OF BACK BENEATH FOLDS OF SKIN, CLEANED WITH NS AND PACKED WITH 4X4 GAUZE AND ABD PAD INTACT WITH PAPER TAPE. DUODERM INTACT TO WOUND ON SACRUM. BARRIER CREAM APPLIED TO SACRAL AREA. PT ABLE TO USE UPPER AND LOWER EXTREMITIES TO PULL HERSELF UP IN THE BED. PHYSICAL THERAPY WORKING WITH PT AT PRESENT TIME. NAD NOTED.
--- NOTE | 2021-07-05 09:24 | NUR ---
Per Bel Cherry @ [facility] provider services, [facility] in [place] is closest place to us. Transport from our facility to their facility will be covered benefit it is the closest place. Only auth for the receiving facility is required. call ref # [id number] at provider services [phone].
[2021-07-05 12:00] VITALS: BP 134/68; TEMP 97.9
--- NOTE | 2021-07-05 12:39 | NUR ---
UR department has been searching for placement for patient to [facility], inpatient rehab facility. We have received refusals from [facility] in [place], [facility]. [facility] [place], [place], [place], [place], and [place]. [facility]. [facility] in [place], [place]. [facility]. [facility]. [facility]. [facility] [place]. [facility].
--- NOTE | 2021-07-05 14:05 | NUR ---
PT SITTING UP IN BED. SELF-FED HER OWN LUNCH TRAY TODAY,ATE ABOUT 50% OF MEAL. A&OX4. NO DISTRESS NOTED. PICC LINE TO UPPER LEFT FA INCTACT AND FLUSHES WELL. PT COMPLIANT WITH PHYSCIAL THERAPY. DENIES ANY PAIN/DISCOMFORT. PT HAS BEEN ACCEPTED TO REHAB FACILITY IN [place].
[2021-07-05 16:00] VITALS: BP 147/83; TEMP 97.8
--- NOTE | 2021-07-05 18:20 | NUR ---
PI SITTING IN HIGH FOWLERS POSITION EATING DINNER TRAY, SELF-FED. PT ATE ABOUT 25% OF MEAL. FAMILY BROUGHT PT COOKIES FROM HOME. NAD NOTED.
[2021-07-05 20:00] VITALS: BP 116/57; TEMP 98.2
[2021-07-06] VITALS: BP 106/55; TEMP 98.1
[2021-07-06 04:00] VITALS: BP 123/56; TEMP 98.7
[2021-07-06 08:00] VITALS: BP 142/70; TEMP 97.9
[2021-07-06 12:00] VITALS: BP 150/63; TEMP 97.6
--- NOTE | 2021-07-06 12:10 | NUR ---
PT GIVEN A BED BATH TODAY. WOUND BETWEEN THE CRACK OF PTS SACRAL AREA HAS IMPROVED HEALING NOTED, WOUND 2X2CM, PINK/RED COLOR, BLOODY DRAINAGE NOTED. CLEANED WOUND WITH NS AND DUODERM APPLIED AND INTACT. CLEANED WOUND TO RIGHT SIDE OF BACK AND APPLIED DAKINS TO 4X4 GAUZE AND INSERTED INSIDE OF WOUND, WOUND HAS SERAGUINEOUS DRAINAGE NOTED, PINKISH IN COLOR, ABD PAD APPLIED AND INTACT. SHINGLES TO LEFT SIDE OF BUTTOCKS HAS HEALED AND SHINGLES NOTED TO RIGHT SIDE OF BUTTOCKS, ACYCLOVIR OINTMENT APPLIED AND INCREASED HEALING NOTED. PT SATS ABOVE 90 WITH O2 AT 3LPM VIA NC. PT ABLE TO SELF-FEED HER MEALS. PT CAN PULL HERSELF UP IN THE BED USING HER UPPER/LOWER EXTREMITIES.
--- NOTE | 2021-07-06 15:31 | NUR ---
per Cheyanne Atkinson [phone] at [place], [place] that they have received auth for pt to be admitted to their facility. She stated they could receive pt saturday07/07/21 in the am. Pt, family, nursing, and Dr. Abernathy are aware. We will call for transport as soon as we receive a definite time from [facility] in the am.
[2021-07-06 16:00] VITALS: BP 150/91; TEMP 99
--- NOTE | 2021-07-06 17:08 | NUR ---
PT HAS BEEN ACCEPTED TO REHAB FACILITY IN [place]. TRANSPORT SCHEDULED TO PICK PT UP IN THE AM. PT AND FAMILY AWARE OF PTS TRANSFER. PT COMPLIANT WITH PHYSICAL THERAPY. DENIES ANY PAIN OR DISCOMFORT. C/O DECREASED ROM TO RIGHT HAND, PT STATED "I FEEL LIKE MY RIGHT HAND WENT TO SLEEP AND IT IS HEAVY. NAD NOTED. O2 @3LP VIA NC INTACT, SATS=90s.
[2021-07-06 20:00] VITALS: BP 142/69; TEMP 98.5
[2021-07-07] VITALS: BP 134/66; TEMP 97.5
[2021-07-07 04:00] VITALS: BP 120/65; TEMP 98.8
[2021-07-07 08:00] VITALS: BP 153/77; TEMP 97.9
[2021-07-07 12:00] VITALS: BP 179/84; TEMP 98.5
--- NOTE | 2021-07-07 15:58 | NUR ---
i rec call back from Cheyanne Atkinson @ [facility] in [place] [phone] that unfortunately their pt did not discharge as anticipated and they will not have a B[place] bed available until sat07/10/21. She assured me that our pt is next on the list to be admitted at their facility. They already have the insurance authorization and if anything changes they can even accept the pt on Sat or sun up until midnight. I will follow up with them at [phone] over the weekend. We will use [facility] [phone] with assist from [employer] or [employer] for lift assist to transfer to transport bed.
[2021-07-07 16:00] VITALS: BP 147/74
--- NOTE | 2021-07-07 19:09 | NUR ---
PT LOW FOWLERS IN BED, TALKING ON CELL PHONE TO FAMILY. PT SELF-FED X3 MEALS THIS SHIFT. BM X1, WITH NO CONSTIPAITON. PICC LINE TO LEFT UPPER ARM INTACT AND BOTH LINES FLUSHES WITHOUT DIFFICULTY. DENIES ANY PAIN/DISCOMFORT THIS SHIFT. PT CHEERFUL MOOD. PT GIVEN A BED BATH AND ADLS COMPLETED. PT ABLE TO USE RIGHT HAND AND LOWER EXTREMITIES TO PULL HERSELF UP IN BED WITH ASSISTANCE. LEFT HAND MOBILE BUT NOT FULL RANGE OF MOTION. PT DID NOT TRANSFER TO REHAB FACILITY IN [place], DUE TO BED AVAILABILITY. POSSIBLE TRANSFER ON SATURDAY OR SATURDAY. TRANSPORT HAS BEEN ARRANGED UPON BED AVAILABILITY AT REHAB FACILITY, ARRANGEMENTS MADE BY [facility].
[2021-07-07 20:00] VITALS: BP 128/73; TEMP 98.5
[2021-07-08] VITALS: BP 114/56; TEMP 98.1
[2021-07-08 04:00] VITALS: BP 143/70; TEMP 96.9
[2021-07-08 08:00] VITALS: BP 120/69; TEMP 97.5
[2021-07-08 12:00] VITALS: BP 115/70; TEMP 98
[2021-07-08 16:00] VITALS: BP 138/84; TEMP 98
[2021-07-08 20:00] VITALS: BP 144/71; TEMP 97.9
--- NOTE | 2021-07-08 20:26 | NUR ---
07/08/21 0730 UNABLE TO COMPLETE ASSESSMENT DUE TO COMPUTER LOCKED OUT.CC
[2021-07-09] VITALS (7 sets, daily range): BP systolic 106–144; BP diastolic 48–91; TEMP 97.5–98.4
--- NOTE | 2021-07-09 12:12 | NUR ---
1200 CALLED ADOLFO WARREN, UR PETS AND PET SUPPLIES SALESPERSON, FOR UPDATE ON BED STATUS. STATES IT WILL STILL BE TOMORROW BEFORE A BED IS AVAILABLE. THEY WILL CONTACT US WHEN HER BED IS READY. ADOLFO WILL FOLLOW UP IN THE AM.
[2021-07-10 03:56] VITALS: BP 130/52; TEMP 98.1
[2021-07-10 08:00] VITALS: BP 118/66; TEMP 97.7
--- NOTE | 2021-07-10 10:30 | NUR ---
IN PT RM TO MOVE PT FROM BED TO CHAIR, PT SITTING UP ON SOB AT THIS TIME, DRESSING CHANGED TO RT LOWER BACK, STAGE II NOTED WITH SMALL AMOUNT OF SLOUGH TO RT SIDE LOWER BACK, AREA CLEANED WITH NS AND DAKINS SOLUTION APPLIED TO GAUZE AND PACKED TO AREA, AREA COVERED WITH ABD PAD AND SECURED WITH TAPE, DUODERM REMOVED TO SACRAL WOUND, SACRAL WOUND HEALED WITH NO OPEN AREAS NOTED OR DRAINAGE, AREA CLEANSED WITH NS AND NEW DUODERM PLACED, PT STOOD WITH MAX ASSISTANCE X3 FOR 15 SEC THEN STOOD AGAIN AND MOVED BED FROM UNDER PT AND PLACED CHAIR UNDER PT, PT TOLERATED WELL, NO FURTHER NEEDS AT THIS TIME
[2021-07-10 12:00] VITALS: BP 144/78; TEMP 98.4
--- NOTE | 2021-07-10 15:30 | NUR ---
IN PT RM TO MOVE PT FROM CHAIR BACK TO BED, PT NEEDED MAX ASSIST X3, PT STOOD WITH ASSISTANCE AND CHAIR WAS MOVED AND BED WAS PUT IN PLACE, PT THEN MANUEVERED HERSELF UP WITH BED WITH LIMITED ASSISTANCE USING THE BED RAILS FOR SUPPORT, PT TOLERATED WELL, NO FURTHER NEEDS AT THIS TIME, CALL LIGHT PLCAED WITHIN REACH, WILL CONTINUE TO MONITOR
--- NOTE | 2021-07-10 15:43 | NUR ---
Spoke with Antonieta at [employer] this morning at [phone]. She said that she would call back this afternoon with a time for pickup of patient to transfer to [facility] in [place]. This afternoon she called back and said that it would be 7pm or 7:15pm before they could olive picker patient. If lift assistance is needed call Trent Aguirre from [facility] at [phone].
[2021-07-10 16:00] VITALS: BP 156/72; TEMP 97.7
--- NOTE | 2021-07-10 18:00 | NUR ---
REPORT GIVEN TO SPRING WITH [facility]
[2021-07-10 20:00] VITALS: BP 132/61; TEMP 98.8
--- NOTE | 2021-07-10 21:37 | NUR ---
07/10/21 @ 2054 Pt left via stretcher with transport to [facility] in stable condition. Pt alert and oriented at the time. HS meds given prior to leaving facility. Pt very thankful to all staff for care she recieved while here at this facility. Family members outside to see pt off. No s/s of distress as pt left facility.
== END 2021-07-10 20:55 | DRG 207 ==
LOC: INF 10:21 → ICU 15:35 → INF 15:35 → MED/SURG 15:35 → INF 06-14 10:30 → ICU 06-14 10:36 → MED/SURG 06-29 09:45
PROVIDERS: ADMIT Family Medicine; ATTEND Family Medicine
PROC: 5A1955Z Respiratory Ventilation, Greater than 96 Consecutive Hours (ICD-10-PCS; principal; 2021-06-14)
PROC: 0BH17EZ Insertion of Endotracheal Airway into Trachea, Via Natural or Artificial Opening (ICD-10-PCS; 2021-06-14)
PROC: 05H633Z Insertion of Infusion Device into Left Subclavian Vein, Percutaneous Approach (ICD-10-PCS; 2021-06-14)
PROC: B547ZZA Ultrasonography of Left Subclavian Vein, Guidance (ICD-10-PCS; 2021-06-14)
PROC: 30233K1 Transfusion of Nonautologous Frozen Plasma into Peripheral Vein, Percutaneous Approach (ICD-10-PCS; 2021-06-14)
PROC: 30233N1 Transfusion of Nonautologous Red Blood Cells into Peripheral Vein, Percutaneous Approach (ICD-10-PCS; 2021-06-24)
DX: U07.1 COVID-19 (principal); J12.82 Pneumonia due to coronavirus disease 2019; J96.00 Acute respiratory failure, unspecified whether with hypoxia or hypercapnia; B02.8 Zoster with other complications; E66.01 Morbid (severe) obesity due to excess calories; G72.89 Other specified myopathies; E86.0 Dehydration; R53.1 Weakness; E03.8 Other specified hypothyroidism; E88.89 Other specified metabolic disorders; E87.8 Other disorders of electrolyte and fluid balance, not elsewhere classified; Z74.1 Need for assistance with personal care; M62.81 Muscle weakness (generalized); R26.2 Difficulty in walking, not elsewhere classified; R13.12 Dysphagia, oropharyngeal phase
CPT/HCPCS: 31500; 36415; 36569; 36591; 36600; 36620; 80053; 80061; 80202; 81000; 82550; 82553; 82728; 82805; 83735; 84100; 84443; 84484; 85007; 85027; 85379; 86140; 86850; 86900; 86901; 86922; 87040; 87070; 87077; 87185; 87186; 87205; 93005; 94002; 94003; 94640; 94664; 94667; 94668; 94760; 96361; 96365; 96367; 96372; 96374; C1751; J0132; J0330; J0456; J0461; J0696; J1100; J1160; J1450; J1642; J1650; J1885; J1940; J1956; J2001; J2020; J2060; J2185; J2250; J2270; J2405; J2704; J3370; J3490; M0244; P9016; P9017; P9047

== ENCOUNTER 2021-08-09 11:03 | Outpatient (CLI) | payer BC ==
[~2021-08-09] VITALS: Ht 167.6 cm; Wt 193.2 kg
== END 2021-08-09 19:04 | disposition home or self-care (01) ==
LOC: INF 11:03
PROVIDERS: ATTEND Family Medicine
DX: L89.93 Pressure ulcer of unspecified site, stage 3 (principal)
CPT/HCPCS: 96365; J0696

== ENCOUNTER 2021-08-10 11:18 | Outpatient (CLI) | payer BC ==
[~2021-08-10] VITALS: Ht 167.6 cm; Wt 193.2 kg
== END 2021-08-10 16:00 ==
LOC: INF 11:18
PROVIDERS: ATTEND Family Medicine
DX: L89.93 Pressure ulcer of unspecified site, stage 3 (principal)
CPT/HCPCS: 96365; J0696

== ENCOUNTER 2021-08-11 10:16 | Outpatient (CLI) | payer BC ==
[~2021-08-11] VITALS: Ht 167.6 cm; Wt 193.2 kg
== END 2021-08-11 19:05 | disposition home or self-care (01) ==
LOC: INF 10:16
PROVIDERS: ATTEND Family Medicine
DX: L89.93 Pressure ulcer of unspecified site, stage 3 (principal)
CPT/HCPCS: 96365; J0696

== ENCOUNTER 2021-08-12 09:32 | Outpatient (CLI) | payer BC ==
[~2021-08-12] VITALS: Ht 167.6 cm; Wt 193.2 kg
== END 2021-08-12 19:04 | disposition home or self-care (01) ==
LOC: INF 09:32
PROVIDERS: ATTEND Nurse Practitioner Family
DX: L89.93 Pressure ulcer of unspecified site, stage 3 (principal)
CPT/HCPCS: 96365; J0696

== ENCOUNTER 2021-08-13 09:47 | Outpatient (CLI) | payer BC ==
[~2021-08-13] VITALS: Ht 167.6 cm; Wt 193.2 kg
== END 2021-08-13 19:02 | disposition home or self-care (01) ==
LOC: INF 09:47
PROVIDERS: ATTEND Nurse Practitioner Family
DX: L89.93 Pressure ulcer of unspecified site, stage 3 (principal)
CPT/HCPCS: 96365; J0696

== ENCOUNTER 2021-09-04 11:20 | Outpatient (CLI) | payer OTHER | END 2021-09-04 19:07 | disposition home or self-care (01) | LOC: RAD 11:20 | PROVIDERS: ATTEND Nurse Practitioner Family | DX: M54.12 Radiculopathy, cervical region (principal) ==

== ENCOUNTER 2021-09-26 13:42 | Outpatient (CLI) | payer OTHER, BC ==
[2021-09-26 14:25] LABS: PLATELET COUNT 353 K/uL (152-353)
[2021-09-26 14:49] LABS: POTASSIUM 3.6 mmol/L (3.6-5.2); SODIUM 142 mmol/L (136-145)
== END 2021-09-26 20:25 | disposition home or self-care (01) ==
LOC: LABW 13:42
PROVIDERS: ATTEND Nurse Practitioner Family
DX: R55 Syncope and collapse (principal)
CPT/HCPCS: 36415; 80053; 81000; 82550; 82553; 84484; 85027; 93005

== ENCOUNTER 2021-12-05 09:36 | Emergency (ER) | payer BC, OTHER ==
[~2021-12-05] VITALS: Ht 167.6 cm; Wt 193.2 kg
[2021-12-05 09:51] VITALS: TEMP 97.5
[2021-12-05 10:49] LABS: PLATELET COUNT 308 K/uL (152-353)
[2021-12-05 11:01] LABS: POTASSIUM 4.1 mmol/L (3.6-5.2); SODIUM 141 mmol/L (136-145)
[2021-12-05 14:27] VITALS: BP 133/74
== END 2021-12-05 14:17 | disposition home or self-care (01) ==
LOC: ED 09:36
PROVIDERS: Emergency Medicine
DX: R07.89 Other chest pain (principal)
CPT/HCPCS: 80053; 82550; 84484; 85027; 85379; 85610; 93005; 96374; 96375; 99284; J2270; J2405

== ENCOUNTER 2021-12-13 19:57 | Emergency (ER) | payer BC, OTHER ==
[~2021-12-13] VITALS: Ht 167.6 cm; Wt 190.5 kg
[2021-12-13 21:00] LABS: POTASSIUM 3.5 mmol/L (3.6-5.2)
[2021-12-13 21:03] LABS: PLATELET COUNT 346 K/uL (152-353)
[2021-12-13 21:13] LABS: PARTIAL THROMBOPLASTIN TIME 25.9 SECONDS (24.5-33.6)
[2021-12-13 22:00] VITALS: BP 138/91; TEMP 99.1
== END 2021-12-13 22:00 | disposition home or self-care (01) ==
LOC: ED 19:57
PROVIDERS: Hospitalist
DX: R07.89 Other chest pain (principal); R09.1 Pleurisy
CPT/HCPCS: 36415; 80053; 82550; 83880; 84484; 85027; 85379; 85610; 85730; 93005; 96374; 96375; 99284; J1100; J1885; J2405

== ENCOUNTER 2022-02-09 10:47 | Outpatient (CLI) | payer OTHER | END 2022-02-09 20:53 | disposition home or self-care (01) | LOC: RAD 10:47 | PROVIDERS: ATTEND Nurse Practitioner Family | DX: R05.1 Acute cough (principal) ==

== ENCOUNTER 2022-03-06 21:11 | Emergency (ER) | payer OTHER ==
[~2022-03-06] VITALS: Ht 170.2 cm; Wt 197.3 kg
[2022-03-06 23:00] LABS: PLATELET COUNT 283 K/uL (152-353)
[2022-03-06 23:02] LABS: POTASSIUM 3.7 mmol/L (3.6-5.2)
[2022-03-07 01:20] VITALS: BP 164/86; TEMP 98
== END 2022-03-07 01:20 | disposition short-term general hospital (02) ==
LOC: ED 21:11
PROVIDERS: Emergency Medicine
DX: I82.491 Acute embolism and thrombosis of other specified deep vein of right lower extremity (principal); T80.218A Other infection due to central venous catheter, initial encounter; B99.8 Other infectious disease; X58.XXXA Exposure to other specified factors, initial encounter; Y92.89 Other specified places as the place of occurrence of the external cause
CPT/HCPCS: 80053; 84484; 85027; 85379; 85610; 87040; 93005; 96372; 99284; J1650; J1885

== ENCOUNTER 2022-04-06 08:36 | Outpatient (CLI) | payer OTHER | END 2022-04-06 19:25 | disposition home or self-care (01) | LOC: RESP 08:36 | PROVIDERS: ATTEND Nurse Practitioner Family | DX: R55 Syncope and collapse (principal) ==

== ENCOUNTER 2022-04-19 08:06 | Outpatient (CLI) | payer OTHER ==
[~2022-04-19] VITALS: Ht 170.2 cm; Wt 205.5 kg
== END 2022-04-19 19:56 | disposition home or self-care (01) ==
LOC: NM 08:06
PROVIDERS: ATTEND Nurse Practitioner Family
DX: R07.89 Other chest pain (principal)
CPT/HCPCS: A9500; J2785

== ENCOUNTER 2022-05-24 14:45 | Emergency (ER) | payer OTHER ==
[~2022-05-24] VITALS: Ht 170.2 cm; Wt 201.9 kg
[2022-05-24 15:27] LABS: PLATELET COUNT 279 K/uL (152-353)
[2022-05-24 15:35] LABS: POTASSIUM 3.8 mmol/L (3.6-5.2); SODIUM 138 mmol/L (136-145)
[2022-05-24 15:39] LABS: PARTIAL THROMBOPLASTIN TIME 27.1 SECONDS (24.5-33.6)
[2022-05-24 19:24] VITALS: BP 126/67; TEMP 98.3
== END 2022-05-24 19:24 | disposition home or self-care (01) ==
LOC: ED 14:45
PROVIDERS: Emergency Medicine
DX: R06.09 Other forms of dyspnea (principal); N17.8 Other acute kidney failure
CPT/HCPCS: 80053; 81002; 82550; 83880; 84484; 85027; 85379; 85610; 85730; 93005; 99282

== ENCOUNTER 2022-06-28 09:52 | Outpatient (CLI) | payer OTHER ==
[~2022-06-28] VITALS: Ht 167.6 cm; Wt 200.0 kg
[2022-06-28 10:35] VITALS: BP 147/82; TEMP 98.8
[2022-06-28 11:04] VITALS: BP 120/80
[2022-06-28 11:11] VITALS: BP 122/69; TEMP 98.7
[2022-06-28 11:19] VITALS: BP 127/76
[2022-06-28 11:34] VITALS: BP 122/74
[2022-06-28 12:06] VITALS: BP 123/64; TEMP 98.7
== END 2022-06-28 22:35 | disposition home or self-care (01) ==
LOC: INF 09:52
PROVIDERS: ATTEND Family Medicine
DX: Z23 Encounter for immunization (principal); U07.1 COVID-19
CPT/HCPCS: 96374; Q0222

== ENCOUNTER 2022-09-18 13:03 | Outpatient (CLI) | payer OTHER ==
[2022-09-18 13:38] LABS: PLATELET COUNT 342 K/uL (152-353)
[2022-09-18 13:46] LABS: POTASSIUM 3.5 mmol/L (3.6-5.2)
== END 2022-09-18 19:16 | disposition home or self-care (01) ==
LOC: LABW 13:03
PROVIDERS: ATTEND Nurse Practitioner Family
DX: R63.5 Abnormal weight gain (principal)
CPT/HCPCS: 36415; 80053; 83880; 85027

== ENCOUNTER 2022-10-28 09:41 | Emergency (ER) | payer OTHER ==
[~2022-10-28] VITALS: Ht 167.6 cm; Wt 200.0 kg
[2022-10-28 09:45] VITALS: TEMP 98.2
[2022-10-28 10:44] VITALS: BP 118/77
== END 2022-10-28 10:44 | disposition home or self-care (01) ==
LOC: ED 09:41
DX: J02.9 Acute pharyngitis, unspecified (principal)
CPT/HCPCS: 87651; 99282

== ENCOUNTER 2022-11-23 19:57 | Emergency (ER) | payer OTHER ==
[~2022-11-23] VITALS: Ht 167.6 cm; Wt 192.8 kg
[2022-11-23 20:25] VITALS: BP 169/85; TEMP 98.8
== END 2022-11-23 21:45 | disposition home or self-care (01) ==
LOC: ED 19:57
DX: S61.252A Open bite of right middle finger without damage to nail, initial encounter (principal); W55.01XA Bitten by cat, initial encounter; Y92.89 Other specified places as the place of occurrence of the external cause
CPT/HCPCS: 90471; 90715; 99282

== ENCOUNTER 2022-11-28 17:24 | Emergency (ER) | payer OTHER ==
[~2022-11-28] VITALS: Ht 167.6 cm; Wt 192.8 kg
[2022-11-28 18:08] LABS: PLATELET COUNT 344 K/uL (152-353)
[2022-11-28 18:24] LABS: POTASSIUM 3.7 mmol/L (3.6-5.2); SODIUM 141 mmol/L (136-145)
[2022-11-28 18:30] LABS: PARTIAL THROMBOPLASTIN TIME 27.8 SECONDS (24.5-33.6)
[2022-11-28 19:25] VITALS: BP 148/81; TEMP 98.7
== END 2022-11-28 19:30 | disposition home or self-care (01) ==
LOC: ED 17:24
PROVIDERS: Emergency Medicine
DX: J98.4 Other disorders of lung (principal)
CPT/HCPCS: 80053; 83880; 84443; 84484; 85027; 85379; 85610; 85730; 93005; 96372; 99283; J2930

== ENCOUNTER 2022-12-23 12:10 | Emergency (ER) | payer OTHER ==
[~2022-12-23] VITALS: Ht 167.6 cm; Wt 158.8 kg
[2022-12-23 12:50] VITALS: TEMP 98
[2022-12-23 14:31] LABS: PLATELET COUNT 338 K/uL (152-353)
[2022-12-23 14:34] LABS: POTASSIUM 3.5 mmol/L (3.6-5.2)
[2022-12-23 16:23] VITALS: BP 136/73
== END 2022-12-23 16:33 | disposition home or self-care (01) ==
LOC: ED 12:10
PROVIDERS: Emergency Medicine
DX: R42 Dizziness and giddiness (principal); W18.39XA Other fall on same level, initial encounter; Y92.89 Other specified places as the place of occurrence of the external cause
CPT/HCPCS: 36415; 80053; 85027; 93005; 96365; 99283; 99284; J2405

== ENCOUNTER 2023-01-07 11:57 | Outpatient (CLI) | payer OTHER | END 2023-01-07 18:59 | disposition home or self-care (01) | LOC: US 11:57 | PROVIDERS: ATTEND Nurse Practitioner Family | DX: R60.0 Localized edema (principal) ==

== ENCOUNTER 2023-01-11 12:51 | Outpatient (CLI) | payer OTHER | END 2023-01-11 22:55 | disposition home or self-care (01) | LOC: RAD 12:51 | PROVIDERS: ATTEND Nurse Practitioner Family | DX: M25.552 Pain in left hip (principal); M79.605 Pain in left leg ==